=== PATIENT | male | born 1950 | race Caucasian/White ===

== ENCOUNTER 2020-03-19 15:29 | Inpatient (IN) ==
[2020-03-19] MEDS ORDERED: Aspirin 81 MG TAB.CHEW PO ONE (15:36)
[2020-03-19] MEDS ORDERED: *HR* Labetalol 20 MG/4 ML SYRINGE IVP ONE (15:52)
[2020-03-19 16:08] LABS: Basophils % 0.5 %; Eosinophils % 0.2 %; Hematocrit 28.2 % (37.5-50.1); Hemoglobin 9.4 g/dL (12.9-16.9); Immature Granulocytes % 0.3 % (0-4); Lymphocytes # 0.6 K/mcL (0.6-4.6); Lymphocytes % 8.9 %; Mean Corpuscular HGB Conc 33.3 g/dL (31.6-35.5); Mean Corpuscular Hemoglobin 30.6 pg (28.0-33.3); Mean Corpuscular Volume 91.9 fL (83.0-100.0); Mean Platelet Volume 11.1 fL (9.4-12.4); Monocytes # 0.4 K/mcL (0.0-1.3); Monocytes % 6.5 %; Neutrophils # 5.6 K/mcL (1.6-8.9); Platelet Count 123 K/mcL (140-400); Red Blood Count 3.07 M/mcL (4.19-5.50); Red Cell Distribution Width 14.4 % (11.5-14.5); Segmented Neutrophils % 83.6 %; White Blood Count 6.6 K/mcL (4.3-11.1)
[2020-03-19 16:37] LABS: Troponin I 0.08 ng/mL (< 0.04)
[2020-03-19 16:40] LABS: Albumin 3.9 g/dL (3.5-5.7); Albumin/Globulin Ratio 1.3 (1.1-2.2); Bilirubin,Direct 0.2 mg/dL (0.0-0.2); Bilirubin,Indirect 0.4 mg/dL (0.0-1.0); Bilirubin,Total 0.6 mg/dL (0.3-1.0); Globulin 2.9 g/dL (2.4-3.5); Potassium 4.7 mEq/L (3.5-5.1); Total Protein 6.8 g/dL (6.4-8.9)
[2020-03-19 16:50] LABS: Activated Partial Thrombo Time 28.2 Seconds (26.0-36.0)
[2020-03-19 16:51] LABS: Prothrombin Time 11.1 Seconds (9.4-12.1)
[2020-03-19] MEDS ORDERED: Furosemide 40 MG/4 ML VIAL IVP ONE (17:38)
[2020-03-19] MEDS ORDERED: Nitroglycerin 0.4 MG PATCH.TD24 TD ONE (17:45)
[2020-03-19] MEDS ORDERED: Naloxone 0.4 MG/ML INJ IVP PRN (17:53)
[2020-03-19] MEDS ORDERED: Dextrose Gel 15 GM/37.5 ML TUBE PO PRN ×2 (17:56)
[2020-03-19] MEDS ORDERED: D5% in Water 1,000 ML IVC PRN (17:56)
[2020-03-19] MEDS ORDERED: *HR* Dextrose 50 % in Water (Vial) 50 ML VIAL IVP PRN (17:56)
[2020-03-19] MEDS ORDERED: Perflutren Lipid Microsphere 1.3 ML in 0.9 % Sodium Chloride 8.7 ML IVP ONE (17:57)
[2020-03-19] MEDS ORDERED: *HR* Metoprolol 5 MG/5 ML VIAL IVP PRN (17:58)
[2020-03-19] MEDS ORDERED: *HR* Heparin 5,000 UNIT/ML VIAL IVP ONE (18:23)
[2020-03-19] MEDS ORDERED: *HR* Heparin 5,000 UNIT/ML VIAL IVP PRN (18:23)
[2020-03-19 19:33] LABS: Estimated Average Glucose 163 mg/dl; Hemoglobin A1C 7.3 %
[2020-03-19] MEDS: Levalbuterol Neb 1.25 MG/3 ML IH SCH ×2 (19:54→22:14)
[2020-03-19 20:10] LABS: Prothrombin Time 11.2 Seconds (9.4-12.1)
[2020-03-19 20:11] LABS: Heparin anti-factor XA UFH 0.05 IU/mL (0.30-0.70)
[2020-03-19 20:24] LABS: Hematocrit 27.8 % (37.5-50.1); Hemoglobin 9.1 g/dL (12.9-16.9); Mean Corpuscular HGB Conc 32.7 g/dL (31.6-35.5); Mean Corpuscular Volume 91.7 fL (83.0-100.0); Mean Platelet Volume 10.4 fL (9.4-12.4); Platelet Count 126 K/mcL (140-400); Red Blood Count 3.03 M/mcL (4.19-5.50); Red Cell Distribution Width 14.3 % (11.5-14.5); White Blood Count 7.4 K/mcL (4.3-11.1)
[2020-03-19 20:55] LABS: Bacteria,Urine Few per hpf (None-Few); Bilirubin,Urine Negative (Negative); Blood,Urine Small (Negative); Clarity,Urine Clear (Clear); Color,Urine Light-Yellow (Yellow); Glucose,Urine (UA) >=1000 mg/dL (Normal); Ketones,Urine Trace mg/dL (Negative); Leukocyte Esterase,Urine Negative (Negative); Mucus,Urine Few per lpf (None-Few); Nitrite,Urine Negative (Negative); Protein,Urine >=300 mg/dL (Neg-Trace); Urobilinogen,Urine Normal (Normal)
[2020-03-19 20:58] LABS: Sodium, Urine 31.7 mEq/L
[2020-03-19] MEDS ORDERED: Insulin DETEMIR 100 UNIT/ML X5UNITS SQ SCH (21:00)
[2020-03-19] MEDS: Ondansetron 4 MG/2 ML VIAL IVP PRN (21:49)
[2020-03-19] MEDS: Furosemide 40 MG/4 ML VIAL IVP SCH (21:49)
[2020-03-19] MEDS: Heparin 25,000 UNIT/250 ML D5W 25,000 UNIT/250 ML IV.SOLN IVC SCH (21:49)
[2020-03-19] MEDS: Insulin LISPRO 300 UNITS/3 ML VIAL SQ SCH (21:53)
[2020-03-19] MEDS: CLEAR EYES NATURAL TEARS 15 ML BOTTLE BOTH EYES SCH (21:53)
[2020-03-19] MEDS: Insulin DETEMIR 100 UNIT/ML X5UNITS SQ SCH (21:56)
[2020-03-19] MEDS: methocarbamoL 750 MG TABLET PO SCH (21:59)
[2020-03-19] MEDS: Metoprolol XL (24 HR) Succ 25 MG TAB.ER.24H PO SCH (21:59)
[2020-03-19] MEDS: Gabapentin 300 MG CAPSULE PO SCH (21:59)
[2020-03-19] MEDS: Mirtazapine 15 MG TABLET PO SCH (21:59)
[2020-03-19] MEDS: Budesonide/Formoterol 160/4.5 1 PUFF INH IH SCH (22:14)
[2020-03-19] MEDS: clonazePAM 0.5 MG TABLET PO PRN (22:40)
[2020-03-20 00:35] LABS: Basophils % 0.5 %; Eosinophils % 0.4 %; Hematocrit 25.4 % (37.5-50.1); Hemoglobin 8.4 g/dL (12.9-16.9); Immature Granulocytes % 1.1 % (0-4); Lymphocytes # 0.5 K/mcL (0.6-4.6); Lymphocytes % 5.9 %; Mean Corpuscular HGB Conc 33.1 g/dL (31.6-35.5); Mean Corpuscular Volume 90.7 fL (83.0-100.0); Mean Platelet Volume 11.1 fL (9.4-12.4); Monocytes # 0.8 K/mcL (0.0-1.3); Monocytes % 10.1 %; Neutrophils # 6.8 K/mcL (1.6-8.9); Platelet Count 117 K/mcL (140-400); Red Cell Distribution Width 14.2 % (11.5-14.5); White Blood Count 8.3 K/mcL (4.3-11.1)
[2020-03-20 00:57] LABS: Calcium 8.1 mg/dL (8.6-10.3); Magnesium 2.5 mg/dL (1.6-2.6); Phosphorous 6.8 mg/dL (2.7-4.5); Potassium 4.2 mEq/L (3.5-5.1)
[2020-03-20 01:13] LABS: Thyroid Stimulating Hormone 2.537 mcIU/mL (0.340-5.600); Troponin I 0.07 ng/mL (< 0.04)
[2020-03-20] MEDS: Levalbuterol Neb 1.25 MG/3 ML IH SCH ×4 (04:03→22:51)
[2020-03-20] MEDS: Ondansetron 4 MG/2 ML VIAL IVP PRN ×2 (05:33→20:52)
[2020-03-20] MEDS: Heparin 25,000 UNIT/250 ML D5W 25,000 UNIT/250 ML IV.SOLN IVC SCH (06:51)
[2020-03-20] MEDS: Insulin LISPRO 300 UNITS/3 ML VIAL SQ SCH ×4 (09:37→20:52)
[2020-03-20] MEDS: CLEAR EYES NATURAL TEARS 15 ML BOTTLE BOTH EYES SCH ×3 (09:38→20:54)
[2020-03-20] MEDS: amLODIPine 5 MG TABLET PO SCH (09:38)
[2020-03-20] MEDS: Aspirin Enteric Coated 81 MG Tablet PO SCH (09:38)
[2020-03-20] MEDS: Clotrimazole 1% CRM 15 GM TUBE TP SCH ×2 (09:38→20:53)
[2020-03-20] MEDS: methocarbamoL 750 MG TABLET PO SCH ×3 (09:38→20:51)
[2020-03-20] MEDS: Furosemide 40 MG/4 ML VIAL IVP SCH ×2 (09:38→20:51)
[2020-03-20] MEDS: Metoprolol XL (24 HR) Succ 25 MG TAB.ER.24H PO SCH ×2 (09:38→20:52)
[2020-03-20] MEDS: Insulin DETEMIR 100 UNIT/ML X5UNITS SQ SCH ×2 (09:39→22:10)
[2020-03-20] MEDS: Gabapentin 300 MG CAPSULE PO SCH ×3 (09:39→20:52)
[2020-03-20] MEDS: Budesonide/Formoterol 160/4.5 1 PUFF INH IH SCH ×2 (10:27→22:51)
[2020-03-20] MEDS ORDERED: Lidocaine 4% CREAM (LMX) 5 GM TP PRN (13:30)
[2020-03-20] MEDS: MethylPREDNISolone 40 MG/ML VIAL IVP SCH ×2 (18:08→23:31)
[2020-03-20 19:30] LABS: Glucose,Pleural Fluid 167 mg/dL (No Ref Range); LDH,Pleural Fluid 64 Units/L (No Ref Range); Total Protein,Pleural Fluid < 3.0 g/dL
[2020-03-20 20:30] LABS: RBC,Pleural Fluid < 2000 RBC/mcL
[2020-03-20] MEDS: Mirtazapine 15 MG TABLET PO SCH (20:51)
[2020-03-20] MEDS: clonazePAM 0.5 MG TABLET PO PRN (20:52)
[2020-03-20 21:36] LABS: Basophils,Pleural Fluid 0 %; Eosinophils,Pleural Fluid 0 %
[2020-03-20 21:37] LABS: Appearance of Pleural Fl Clear (Clear)
[2020-03-20] MEDS: *HR* Heparin 5,000 UNIT/ML VIAL IVP PRN (23:33)
[2020-03-21] MEDS: Levalbuterol Neb 1.25 MG/3 ML IH SCH ×4 (03:36→22:35)
[2020-03-21 06:57] LABS: Hematocrit 22.9 % (37.5-50.1); Hemoglobin 7.6 g/dL (12.9-16.9); Immature Granulocytes % 0.3 % (0-4); Lymphocytes # 0.2 K/mcL (0.6-4.6); Lymphocytes % 2.5 %; Mean Corpuscular HGB Conc 33.2 g/dL (31.6-35.5); Mean Corpuscular Hemoglobin 30.9 pg (28.0-33.3); Mean Corpuscular Volume 93.1 fL (83.0-100.0); Mean Platelet Volume 10.8 fL (9.4-12.4); Monocytes # 0.1 K/mcL (0.0-1.3); Monocytes % 0.9 %; Neutrophils # 6.1 K/mcL (1.6-8.9); Platelet Count 113 K/mcL (140-400); Red Blood Count 2.46 M/mcL (4.19-5.50); Red Cell Distribution Width 14.5 % (11.5-14.5); Segmented Neutrophils % 96.3 %; White Blood Count 6.4 K/mcL (4.3-11.1)
[2020-03-21 07:16] LABS: Platelet Estimate Slight Decrease (Normal)
[2020-03-21 07:18] LABS: % Iron Saturation 11 % (20-55); Iron 27 mcg/dL (65-175); Transferrin 176 mg/dL (203-362)
[2020-03-21 07:19] LABS: Calcium 8.1 mg/dL (8.6-10.3); Magnesium 2.6 mg/dL (1.6-2.6); Phosphorous 7.8 mg/dL (2.7-4.5)
[2020-03-21 07:45] LABS: Folate 10.2 ng/mL (3.0-16.0)
[2020-03-21] MEDS: Insulin LISPRO 300 UNITS/3 ML VIAL SQ SCH ×4 (07:48→21:07)
[2020-03-21] MEDS: Insulin DETEMIR 100 UNIT/ML X5UNITS SQ SCH ×2 (07:53→18:20)
[2020-03-21] MEDS: methocarbamoL 750 MG TABLET PO SCH ×3 (07:56→21:05)
[2020-03-21] MEDS: Aspirin Enteric Coated 81 MG Tablet PO SCH (07:56)
[2020-03-21] MEDS: MethylPREDNISolone 40 MG/ML VIAL IVP SCH ×2 (07:56→21:07)
[2020-03-21] MEDS: Furosemide 40 MG/4 ML VIAL IVP SCH ×2 (07:56→21:07)
[2020-03-21] MEDS: Metoprolol XL (24 HR) Succ 25 MG TAB.ER.24H PO SCH ×2 (07:56→21:05)
[2020-03-21] MEDS: amLODIPine 5 MG TABLET PO SCH (07:56)
[2020-03-21] MEDS: Gabapentin 300 MG CAPSULE PO SCH (07:56)
[2020-03-21] MEDS: Clotrimazole 1% CRM 15 GM TUBE TP SCH ×2 (08:00→21:08)
[2020-03-21] MEDS: CLEAR EYES NATURAL TEARS 15 ML BOTTLE BOTH EYES SCH ×3 (08:00→21:08)
[2020-03-21 09:24] LABS: Hematocrit 25.8 % (37.5-50.1); Hemoglobin 8.7 g/dL (12.9-16.9)
[2020-03-21] MEDS: Budesonide/Formoterol 160/4.5 1 PUFF INH IH SCH ×2 (10:33→22:35)
[2020-03-21 12:45] LABS: Hepatitis B Surface Antibody 139.44 mIU/mL
[2020-03-21 12:55] LABS: Hepatitis B Surface Antigen Nonreactive (Nonreactive)
[2020-03-21] MEDS ORDERED: Heparin 1,000 UNITS/500 mL 500 ML ONE (13:30)
[2020-03-21] MEDS ORDERED: Lidocaine/EPI 1:100k 1% 50 ML VIAL ONE (13:30)
[2020-03-21] MEDS ORDERED: *HR* FentaNYL (PF) 100 MCG/2 ML VIAL IVP ONE (13:38)
[2020-03-21] MEDS ORDERED: CeFAZolin 2,000 MG/50 ML BAG IVPB ONE (13:38)
[2020-03-21] MEDS ORDERED: *HR* Midazolam HCl 2 MG/2 ML VIAL IVP ONE (13:38)
[2020-03-21] MEDS ORDERED: 0.9 % Sodium Chloride 500 ML ONE (14:28)
[2020-03-21] MEDS ORDERED: *HR* Heparin 5,000 UNIT/ML VIAL ONE (15:06)
[2020-03-21] MEDS: hydrALAZINE 25 MG TABLET PO SCH ×2 (15:52→23:43)
[2020-03-21] MEDS: Heparin 25,000 UNIT/250 ML D5W 25,000 UNIT/250 ML IV.SOLN IVC SCH (15:54)
[2020-03-21 17:05] LABS: Hematocrit 24.7 % (37.5-50.1); Hemoglobin 8.1 g/dL (12.9-16.9)
[2020-03-21] MEDS ORDERED: Metoprolol XL (24 HR) Succ 25 MG TAB.ER.24H PO SCH (21:00)
[2020-03-21] MEDS: Mirtazapine 15 MG TABLET PO SCH (21:05)
[2020-03-21 22:32] LABS: Hematocrit 24.2 % (37.5-50.1); Hemoglobin 7.8 g/dL (12.9-16.9)
[2020-03-21] MEDS: *HR* Heparin 5,000 UNIT/ML VIAL IVP PRN (23:12)
[2020-03-22] MEDS: Levalbuterol Neb 1.25 MG/3 ML IH SCH ×4 (03:36→21:54)
[2020-03-22 05:21] LABS: Basophils % 0.1 %; Hemoglobin 8.1 g/dL (12.9-16.9); Immature Granulocytes % 0.5 % (0-4); Lymphocytes # 0.2 K/mcL (0.6-4.6); Lymphocytes % 1.8 %; Mean Corpuscular HGB Conc 32.4 g/dL (31.6-35.5); Mean Corpuscular Hemoglobin 30.5 pg (28.0-33.3); Mean Platelet Volume 11.2 fL (9.4-12.4); Monocytes # 0.3 K/mcL (0.0-1.3); Platelet Count 125 K/mcL (140-400); Red Blood Count 2.66 M/mcL (4.19-5.50); Red Cell Distribution Width 14.6 % (11.5-14.5); Segmented Neutrophils % 94.6 %; White Blood Count 8.4 K/mcL (4.3-11.1)
[2020-03-22 05:44] LABS: Magnesium 2.6 mg/dL (1.6-2.6); Phosphorous 8.7 mg/dL (2.7-4.5); Potassium 4.9 mEq/L (3.5-5.1)
[2020-03-22 06:27] LABS: Platelet Estimate Slight Decrease (Normal); Poikilocytosis 1+ (Not Present)
[2020-03-22] MEDS: methocarbamoL 750 MG TABLET PO SCH ×3 (07:46→20:41)
[2020-03-22] MEDS: CLEAR EYES NATURAL TEARS 15 ML BOTTLE BOTH EYES SCH ×3 (07:46→20:41)
[2020-03-22] MEDS: Metoprolol XL (24 HR) Succ 25 MG TAB.ER.24H PO SCH ×2 (07:46→20:41)
[2020-03-22] MEDS: Aspirin Enteric Coated 81 MG Tablet PO SCH (07:46)
[2020-03-22] MEDS: hydrALAZINE 25 MG TABLET PO SCH ×2 (07:47→17:31)
[2020-03-22] MEDS: Furosemide 40 MG/4 ML VIAL IVP SCH ×2 (07:48→22:57)
[2020-03-22] MEDS: Clotrimazole 1% CRM 15 GM TUBE TP SCH ×2 (07:48→20:42)
[2020-03-22] MEDS: MethylPREDNISolone 40 MG/ML VIAL IVP SCH (07:48)
[2020-03-22] MEDS: Insulin LISPRO 300 UNITS/3 ML VIAL SQ SCH ×4 (07:49→20:42)
[2020-03-22] MEDS ORDERED: *HR* Heparin 10,000 UNIT/10 ML VIAL IV PRN ×2 (08:10)
[2020-03-22] MEDS ORDERED: 0.9 % Sodium Chloride 250 ML IVC PRN (08:10)
[2020-03-22] MEDS ORDERED: 0.9 % Sodium Chloride 1,000 ML PRIME SCH (08:15)
[2020-03-22] MEDS: Budesonide/Formoterol 160/4.5 1 PUFF INH IH SCH ×2 (09:28→21:54)
[2020-03-22] MEDS ORDERED: polyethylene glycoL 3350 17 GM POWD.PACK PO PRN (10:27)
[2020-03-22 13:53] LABS: Hematocrit 23.3 % (37.5-50.1); Hemoglobin 7.7 g/dL (12.9-16.9)
[2020-03-22] MEDS: Isosorbide MONOnitrate (24 HR) 30 MG TAB.ER.24H PO SCH (14:59)
[2020-03-22] MEDS: Heparin 25,000 UNIT/250 ML D5W 25,000 UNIT/250 ML IV.SOLN IVC SCH (16:30)
[2020-03-22] MEDS ORDERED: 0.9 % Sodium Chloride 250 ML ONE (18:47)
[2020-03-22] MEDS: Insulin DETEMIR 100 UNIT/ML X5UNITS SQ SCH (20:40)
[2020-03-22] MEDS: Mirtazapine 15 MG TABLET PO SCH (20:41)
[2020-03-22] MEDS: Gabapentin 300 MG CAPSULE PO SCH (20:41)
[2020-03-22 23:41] LABS: Hematocrit 27.6 % (37.5-50.1)
[2020-03-23] MEDS: Levalbuterol Neb 1.25 MG/3 ML IH SCH ×4 (03:50→21:43)
[2020-03-23] MEDS ORDERED: *HR* Metoprolol 5 MG/5 ML VIAL IVP PRN (06:22)
[2020-03-23] MEDS: hydrALAZINE 25 MG TABLET PO SCH ×3 (07:27→17:01)
[2020-03-23] MEDS: Insulin LISPRO 300 UNITS/3 ML VIAL SQ SCH ×4 (07:28→21:04)
[2020-03-23] MEDS ORDERED: 0.9 % Sodium Chloride 250 ML IVC PRN (07:34)
[2020-03-23] MEDS ORDERED: *HR* Heparin 10,000 UNIT/10 ML VIAL IV PRN ×2 (07:34)
[2020-03-23 07:37] LABS: Calcium 8.1 mg/dL (8.6-10.3); Magnesium 2.4 mg/dL (1.6-2.6); Potassium 4.5 mEq/L (3.5-5.1)
[2020-03-23 07:38] LABS: Basophils % 0.1 %; Eosinophils % 0.1 %; Hematocrit 29.8 % (37.5-50.1); Hemoglobin 10.1 g/dL (12.9-16.9); Lymphocytes % 7.1 %; Mean Corpuscular HGB Conc 33.9 g/dL (31.6-35.5); Mean Corpuscular Hemoglobin 30.4 pg (28.0-33.3); Mean Corpuscular Volume 89.8 fL (83.0-100.0); Mean Platelet Volume 11.6 fL (9.4-12.4); Monocytes # 0.7 K/mcL (0.0-1.3); Monocytes % 5.4 %; Platelet Count 142 K/mcL (140-400); Red Blood Count 3.32 M/mcL (4.19-5.50); Red Cell Distribution Width 15.2 % (11.5-14.5); Segmented Neutrophils % 86.3 %
[2020-03-23 07:39] LABS: Neutrophils # 11.7 K/mcL (1.6-8.9); White Blood Count 13.5 K/mcL (4.3-11.1)
[2020-03-23] MEDS: Isosorbide MONOnitrate (24 HR) 30 MG TAB.ER.24H PO SCH (08:13)
[2020-03-23] MEDS: Furosemide 40 MG/4 ML VIAL IVP SCH ×2 (08:13→20:56)
[2020-03-23] MEDS: Metoprolol XL (24 HR) Succ 25 MG TAB.ER.24H PO SCH ×2 (08:13→20:53)
[2020-03-23] MEDS: methocarbamoL 750 MG TABLET PO SCH ×3 (08:13→20:54)
[2020-03-23] MEDS: Aspirin Enteric Coated 81 MG Tablet PO SCH (08:13)
[2020-03-23] MEDS: Clotrimazole 1% CRM 15 GM TUBE TP SCH ×2 (08:14→20:55)
[2020-03-23] MEDS: CLEAR EYES NATURAL TEARS 15 ML BOTTLE BOTH EYES SCH ×3 (08:14→20:56)
[2020-03-23] MEDS ORDERED: MethylPREDNISolone 40 MG/ML VIAL IVP SCH (09:00)
[2020-03-23] MEDS: Budesonide/Formoterol 160/4.5 1 PUFF INH IH SCH ×2 (10:00→21:43)
[2020-03-23] MEDS ORDERED: Isosorbide MONOnitrate (24 HR) 30 MG TAB.ER.24H PO ONE (10:15)
[2020-03-23] MEDS: Methyl Salicylate/Menthol 57 APPL/57 GM TUBE TP PRN (11:48)
[2020-03-23] MEDS: Acetaminophen 325 MG TABLET PO PRN (11:48)
[2020-03-23] MEDS ORDERED: Acetaminophen IV 1,000 MG/100 ML BAG IVPB ONE (15:41)
[2020-03-23] MEDS ORDERED: 0.9 % Sodium Chloride 250 ML IVC ONE (15:44)
[2020-03-23] MEDS: Heparin 25,000 UNIT/250 ML D5W 25,000 UNIT/250 ML IV.SOLN IVC SCH (15:45)
[2020-03-23 15:53] LABS: Bilirubin,Urine Negative (Negative); Blood,Urine Moderate (Negative); Clarity,Urine Turbid (Clear); Color,Urine Light-Yellow (Yellow); Glucose,Urine (UA) 150 mg/dL (Normal); Ketones,Urine Negative (Negative); Leukocyte Esterase,Urine Small (Negative); Nitrite,Urine Negative (Negative); Protein,Urine >=300 mg/dL (Neg-Trace); RBC,Urine 50-100 per hpf (0-3); Specific Gravity,Urine 1.013 (1.010-1.025); Urobilinogen,Urine Normal (Normal)
[2020-03-23] MEDS ORDERED: Vancomycin 1,500 MG/265 ML IV.SOLN IVPB ONE (16:00)
[2020-03-23] MEDS ORDERED: Vancomycin 1 EACH in 0.9 % Sodium Chloride 250 ML IVPB SCH (16:00)
[2020-03-23] MEDS: Piperacillin/Tazobactam 3.375 GM in 0.9 % Sodium Chloride Mini Bag 100 ML IVPB SCH (17:00)
[2020-03-23] MEDS ORDERED: Aspirin Enteric Coated 325 MG Tablet PO ONE (17:44)
[2020-03-23] MEDS: *HR* Amiodarone 200 MG TABLET PO SCH ×2 (18:58→22:14)
[2020-03-23] MEDS: Gabapentin 300 MG CAPSULE PO SCH (20:54)
[2020-03-23] MEDS: Mirtazapine 15 MG TABLET PO SCH (20:54)
[2020-03-24] MEDS: hydrALAZINE 25 MG TABLET PO SCH ×3 (00:19→18:02)
[2020-03-24 00:35] LABS: Immature Granulocytes % 0.5 % (0-4)
[2020-03-24 00:46] LABS: Basophils % 0.1 %; Hematocrit 24.7 % (37.5-50.1); Hemoglobin 8.1 g/dL (12.9-16.9); Lymphocytes # 0.7 K/mcL (0.6-4.6); Mean Corpuscular HGB Conc 32.8 g/dL (31.6-35.5); Mean Corpuscular Hemoglobin 30.2 pg (28.0-33.3); Mean Corpuscular Volume 92.2 fL (83.0-100.0); Mean Platelet Volume 10.7 fL (9.4-12.4); Monocytes % 12.2 %; Neutrophils # 7.5 K/mcL (1.6-8.9); Platelet Count 112 K/mcL (140-400); Red Blood Count 2.68 M/mcL (4.19-5.50); Red Cell Distribution Width 15.6 % (11.5-14.5); Segmented Neutrophils % 80.2 %; White Blood Count 9.4 K/mcL (4.3-11.1)
[2020-03-24 00:51] LABS: Calcium 7.3 mg/dL (8.6-10.3); Magnesium 2.2 mg/dL (1.6-2.6); Phosphorous 5.4 mg/dL (2.7-4.5); Potassium 4.7 mEq/L (3.5-5.1)
[2020-03-24 01:06] LABS: Monocytes # 1.2 K/mcL (0.0-1.3)
[2020-03-24 01:07] LABS: Platelet Estimate Slight Decrease (Normal)
[2020-03-24] MEDS: Levalbuterol Neb 1.25 MG/3 ML IH SCH ×4 (03:44→22:07)
[2020-03-24] MEDS: Piperacillin/Tazobactam 3.375 GM in 0.9 % Sodium Chloride Mini Bag 100 ML IVPB SCH ×2 (03:48→18:03)
[2020-03-24] MEDS ORDERED: *HR* Heparin 10,000 UNIT/10 ML VIAL IV PRN (07:37)
[2020-03-24] MEDS ORDERED: 0.9 % Sodium Chloride 250 ML IVC PRN (07:37)
[2020-03-24] MEDS ORDERED: 0.9 % Sodium Chloride 1,000 ML PRIME SCH (07:45)
[2020-03-24 08:09] LABS: Hematocrit 29.6 % (37.5-50.1); Hemoglobin 9.5 g/dL (12.9-16.9)
[2020-03-24] MEDS: Insulin LISPRO 300 UNITS/3 ML VIAL SQ SCH ×4 (09:14→21:08)
[2020-03-24] MEDS: predniSONE 20 MG TABLET PO SCH (09:19)
[2020-03-24] MEDS: Isosorbide MONOnitrate (24 HR) 60 MG TAB.ER.24H PO SCH (09:19)
[2020-03-24] MEDS: Aspirin Enteric Coated 81 MG Tablet PO SCH (09:19)
[2020-03-24] MEDS: *HR* Amiodarone 200 MG TABLET PO SCH ×3 (09:19→20:58)
[2020-03-24] MEDS: methocarbamoL 750 MG TABLET PO SCH ×3 (09:20→20:58)
[2020-03-24] MEDS: Furosemide 40 MG/4 ML VIAL IVP SCH ×2 (09:20→20:58)
[2020-03-24] MEDS: Metoprolol XL (24 HR) Succ 25 MG TAB.ER.24H PO SCH ×2 (09:20→20:58)
[2020-03-24] MEDS: Clotrimazole 1% CRM 15 GM TUBE TP SCH ×2 (09:20→20:59)
[2020-03-24] MEDS: CLEAR EYES NATURAL TEARS 15 ML BOTTLE BOTH EYES SCH ×3 (09:21→20:57)
[2020-03-24] MEDS: Methyl Salicylate/Menthol 57 APPL/57 GM TUBE TP PRN (09:21)
[2020-03-24] MEDS: Budesonide/Formoterol 160/4.5 1 PUFF INH IH SCH ×2 (09:38→22:07)
[2020-03-24] MEDS: Insulin DETEMIR 100 UNIT/ML X5UNITS SQ SCH ×2 (11:37→21:09)
[2020-03-24 12:45] LABS: Hematocrit 32.2 % (37.5-50.1); Hemoglobin 10.6 g/dL (12.9-16.9)
[2020-03-24] MEDS: Heparin 25,000 UNIT/250 ML D5W 25,000 UNIT/250 ML IV.SOLN IVC SCH (18:04)
[2020-03-24] MEDS: Gabapentin 300 MG CAPSULE PO SCH (20:57)
[2020-03-24] MEDS: Mirtazapine 15 MG TABLET PO SCH (20:58)
[2020-03-25] MEDS: hydrALAZINE 25 MG TABLET PO SCH ×4 (00:46→23:28)
[2020-03-25 02:34] LABS: Basophils % 0.1 %; Eosinophils # 0.1 K/mcL (0.0-0.6); Eosinophils % 0.8 %; Hematocrit 29.3 % (37.5-50.1); Hemoglobin 9.6 g/dL (12.9-16.9); Immature Granulocytes % 0.6 % (0-4); Lymphocytes # 0.9 K/mcL (0.6-4.6); Lymphocytes % 9.6 %; Mean Corpuscular HGB Conc 32.8 g/dL (31.6-35.5); Mean Corpuscular Hemoglobin 30.6 pg (28.0-33.3); Mean Corpuscular Volume 93.3 fL (83.0-100.0); Mean Platelet Volume 10.6 fL (9.4-12.4); Monocytes # 1.1 K/mcL (0.0-1.3); Neutrophils # 7.3 K/mcL (1.6-8.9); Platelet Count 144 K/mcL (140-400); Red Blood Count 3.14 M/mcL (4.19-5.50); Red Cell Distribution Width 15.1 % (11.5-14.5); Segmented Neutrophils % 76.9 %; White Blood Count 9.5 K/mcL (4.3-11.1)
[2020-03-25 02:51] LABS: Calcium 8.1 mg/dL (8.6-10.3); Magnesium 2.3 mg/dL (1.6-2.6); Phosphorous 5.3 mg/dL (2.7-4.5); Potassium 4.1 mEq/L (3.5-5.1)
[2020-03-25] MEDS: Levalbuterol Neb 1.25 MG/3 ML IH SCH ×4 (03:59→21:52)
[2020-03-25] MEDS: Piperacillin/Tazobactam 3.375 GM in 0.9 % Sodium Chloride Mini Bag 100 ML IVPB SCH ×2 (04:55→17:15)
[2020-03-25] MEDS: Furosemide 40 MG/4 ML VIAL IVP SCH ×2 (07:55→21:19)
[2020-03-25] MEDS: Insulin LISPRO 300 UNITS/3 ML VIAL SQ SCH ×4 (07:55→21:22)
[2020-03-25] MEDS: Methyl Salicylate/Menthol 57 APPL/57 GM TUBE TP PRN (07:56)
[2020-03-25] MEDS: Insulin DETEMIR 100 UNIT/ML X5UNITS SQ SCH ×2 (07:56→21:22)
[2020-03-25] MEDS: CLEAR EYES NATURAL TEARS 15 ML BOTTLE BOTH EYES SCH ×3 (07:56→21:22)
[2020-03-25] MEDS: Clotrimazole 1% CRM 15 GM TUBE TP SCH ×2 (07:56→17:24)
[2020-03-25] MEDS: predniSONE 20 MG TABLET PO SCH (07:57)
[2020-03-25] MEDS: Aspirin Enteric Coated 81 MG Tablet PO SCH (07:57)
[2020-03-25] MEDS: methocarbamoL 750 MG TABLET PO SCH ×3 (07:57→21:19)
[2020-03-25] MEDS: *HR* Amiodarone 200 MG TABLET PO SCH ×3 (07:57→21:19)
[2020-03-25] MEDS: Metoprolol XL (24 HR) Succ 25 MG TAB.ER.24H PO SCH ×2 (07:57→21:19)
[2020-03-25] MEDS: Isosorbide MONOnitrate (24 HR) 60 MG TAB.ER.24H PO SCH ×2 (07:57→10:13)
[2020-03-25] MEDS: Budesonide/Formoterol 160/4.5 1 PUFF INH IH SCH ×2 (10:27→21:51)
[2020-03-25] MEDS: Acetaminophen 325 MG TABLET PO PRN (14:30)
[2020-03-25] MEDS ORDERED: Aminoglycoside Consult 1 EACH MC ONE (15:38)
[2020-03-25] MEDS: *HR* Heparin 5,000 UNIT/ML VIAL IVP PRN (17:13)
[2020-03-25] MEDS: Heparin 25,000 UNIT/250 ML D5W 25,000 UNIT/250 ML IV.SOLN IVC SCH (17:36)
[2020-03-25] MEDS: Gabapentin 300 MG CAPSULE PO SCH (21:19)
[2020-03-25] MEDS: Mirtazapine 15 MG TABLET PO SCH (21:19)
[2020-03-26] MEDS: Levalbuterol Neb 1.25 MG/3 ML IH SCH ×4 (03:29→21:13)
[2020-03-26] MEDS: Piperacillin/Tazobactam 3.375 GM in 0.9 % Sodium Chloride Mini Bag 100 ML IVPB SCH ×2 (03:59→18:33)
[2020-03-26 05:28] LABS: Basophils % 0.1 %; Hematocrit 28.6 % (37.5-50.1); Hemoglobin 9.2 g/dL (12.9-16.9); Immature Granulocytes % 0.7 % (0-4); Lymphocytes # 0.3 K/mcL (0.6-4.6); Lymphocytes % 2.2 %; Mean Corpuscular HGB Conc 32.2 g/dL (31.6-35.5); Mean Corpuscular Hemoglobin 30.7 pg (28.0-33.3); Mean Corpuscular Volume 95.3 fL (83.0-100.0); Mean Platelet Volume 10.4 fL (9.4-12.4); Monocytes # 0.8 K/mcL (0.0-1.3); Monocytes % 6.9 %; Neutrophils # 10.8 K/mcL (1.6-8.9); Platelet Count 139 K/mcL (140-400); Red Cell Distribution Width 14.5 % (11.5-14.5); Segmented Neutrophils % 90.1 %
[2020-03-26 05:54] LABS: Calcium 7.7 mg/dL (8.6-10.3); Magnesium 2.5 mg/dL (1.6-2.6); Potassium 4.8 mEq/L (3.5-5.1)
[2020-03-26] MEDS ORDERED: Insulin LISPRO 300 UNITS/3 ML VIAL SQ ONE (06:08)
[2020-03-26] MEDS ORDERED: Insulin DETEMIR 100 UNIT/ML X5UNITS SQ ONE (07:24)
[2020-03-26] MEDS: *HR* Amiodarone 200 MG TABLET PO SCH ×3 (08:11→20:55)
[2020-03-26] MEDS: Isosorbide MONOnitrate (24 HR) 60 MG TAB.ER.24H PO SCH (08:11)
[2020-03-26] MEDS: hydrALAZINE 25 MG TABLET PO SCH ×3 (08:12→23:53)
[2020-03-26] MEDS: predniSONE 20 MG TABLET PO SCH (08:13)
[2020-03-26] MEDS: Aspirin Enteric Coated 81 MG Tablet PO SCH (08:14)
[2020-03-26] MEDS: Metoprolol XL (24 HR) Succ 25 MG TAB.ER.24H PO SCH (08:14)
[2020-03-26] MEDS: methocarbamoL 750 MG TABLET PO SCH ×3 (08:14→20:54)
[2020-03-26] MEDS: CLEAR EYES NATURAL TEARS 15 ML BOTTLE BOTH EYES SCH ×3 (08:15→20:54)
[2020-03-26] MEDS: Furosemide 40 MG/4 ML VIAL IVP SCH ×2 (08:15→20:54)
[2020-03-26] MEDS: Clotrimazole 1% CRM 15 GM TUBE TP SCH ×2 (08:16→18:32)
[2020-03-26] MEDS: Insulin LISPRO 300 UNITS/3 ML VIAL SQ SCH ×5 (08:18→23:53)
[2020-03-26] MEDS ORDERED: Insulin DETEMIR 100 UNIT/ML X5UNITS SQ SCH ×2 (09:00→21:00)
[2020-03-26] MEDS ORDERED: Metoprolol XL (24 HR) Succ 25 MG TAB.ER.24H PO ONE (09:15)
[2020-03-26] MEDS: Budesonide/Formoterol 160/4.5 1 PUFF INH IH SCH ×2 (09:54→21:13)
[2020-03-26] MEDS: Heparin 25,000 UNIT/250 ML D5W 25,000 UNIT/250 ML IV.SOLN IVC SCH (18:35)
[2020-03-26] MEDS: Insulin DETEMIR 100 UNIT/ML X5UNITS SQ SCH (20:54)
[2020-03-26] MEDS: Metoprolol XL (24 HR) Succ 50 MG TAB.ER.24H PO SCH (20:54)
[2020-03-26] MEDS: Mirtazapine 15 MG TABLET PO SCH (20:54)
[2020-03-26] MEDS: Gabapentin 300 MG CAPSULE PO SCH (20:54)
[2020-03-27 02:38] LABS: Basophils % 0.1 %; Hematocrit 26.8 % (37.5-50.1); Hemoglobin 8.8 g/dL (12.9-16.9); Immature Granulocytes % 0.8 % (0-4); Lymphocytes # 0.5 K/mcL (0.6-4.6); Lymphocytes % 3.3 %; Mean Corpuscular HGB Conc 32.8 g/dL (31.6-35.5); Mean Corpuscular Hemoglobin 31.1 pg (28.0-33.3); Mean Corpuscular Volume 94.7 fL (83.0-100.0); Mean Platelet Volume 10.5 fL (9.4-12.4); Monocytes # 1.2 K/mcL (0.0-1.3); Monocytes % 8.6 %; Neutrophils # 12.5 K/mcL (1.6-8.9); Platelet Count 171 K/mcL (140-400); Red Blood Count 2.83 M/mcL (4.19-5.50); Red Cell Distribution Width 14.8 % (11.5-14.5); Segmented Neutrophils % 87.2 %; White Blood Count 14.4 K/mcL (4.3-11.1)
[2020-03-27 02:55] LABS: Magnesium 2.5 mg/dL (1.6-2.6); Potassium 4.9 mEq/L (3.5-5.1)
[2020-03-27] MEDS: Levalbuterol Neb 1.25 MG/3 ML IH SCH ×2 (03:23→10:24)
[2020-03-27] MEDS: Insulin LISPRO 300 UNITS/3 ML VIAL SQ SCH ×4 (04:24→17:35)
[2020-03-27] MEDS: Piperacillin/Tazobactam 3.375 GM in 0.9 % Sodium Chloride Mini Bag 100 ML IVPB SCH ×2 (04:34→15:08)
[2020-03-27] MEDS ORDERED: 0.9 % Sodium Chloride 250 ML IVC PRN (07:28)
[2020-03-27] MEDS ORDERED: *HR* Heparin 10,000 UNIT/10 ML VIAL IV PRN (07:28)
[2020-03-27] MEDS: predniSONE 20 MG TABLET PO SCH (08:08)
[2020-03-27] MEDS: methocarbamoL 750 MG TABLET PO SCH ×3 (08:08→20:30)
[2020-03-27] MEDS: Aspirin Enteric Coated 81 MG Tablet PO SCH (08:08)
[2020-03-27] MEDS: *HR* Amiodarone 200 MG TABLET PO SCH ×2 (08:08→20:30)
[2020-03-27] MEDS: Furosemide 40 MG/4 ML VIAL IVP SCH ×2 (08:09→20:30)
[2020-03-27] MEDS: CLEAR EYES NATURAL TEARS 15 ML BOTTLE BOTH EYES SCH ×3 (08:17→20:29)
[2020-03-27] MEDS: hydrALAZINE 25 MG TABLET PO SCH ×2 (08:18→15:07)
[2020-03-27] MEDS: Budesonide/Formoterol 160/4.5 1 PUFF INH IH SCH ×2 (10:23→19:39)
[2020-03-27] MEDS: Metoprolol XL (24 HR) Succ 50 MG TAB.ER.24H PO SCH ×2 (12:34→20:30)
[2020-03-27] MEDS: Clotrimazole 1% CRM 15 GM TUBE TP SCH ×2 (12:34→20:29)
[2020-03-27] MEDS: Isosorbide MONOnitrate (24 HR) 60 MG TAB.ER.24H PO SCH (12:34)
[2020-03-27] MEDS: Insulin DETEMIR 100 UNIT/ML X5UNITS SQ SCH ×2 (12:37→20:30)
[2020-03-27] MEDS ORDERED: ISOVUE-370 200 ML INFUS..BTL ONE (13:23)
[2020-03-27] MEDS ORDERED: *HR* Heparin 10,000 UNIT/10 ML VIAL ONE (13:23)
[2020-03-27] MEDS ORDERED: 0.9 % Sodium Chloride 2,000 ML ONE (13:23)
[2020-03-27] MEDS ORDERED: Heparin 1,000 UNITS/500 mL 500 ML ONE (13:23)
[2020-03-27] MEDS ORDERED: Nitroglycerin 1,000 MCG/10 ML VIAL IV ONE (13:24)
[2020-03-27] MEDS ORDERED: *HR* Midazolam HCl 2 MG/2 ML VIAL ONE (14:02)
[2020-03-27] MEDS ORDERED: *HR* FentaNYL (PF) 100 MCG/2 ML VIAL ONE (14:02)
[2020-03-27] MEDS ORDERED: Levalbuterol Neb 1.25 MG/3 ML IH PRN (14:48)
[2020-03-27] MEDS: Heparin 25,000 UNIT/250 ML D5W 25,000 UNIT/250 ML IV.SOLN IVC SCH (17:35)
[2020-03-27] MEDS: Acetaminophen 325 MG TABLET PO PRN (18:01)
[2020-03-27] MEDS: Mirtazapine 15 MG TABLET PO SCH (20:30)
[2020-03-27] MEDS: Gabapentin 300 MG CAPSULE PO SCH (20:30)
[2020-03-28] MEDS: hydrALAZINE 25 MG TABLET PO SCH ×3 (00:31→16:54)
[2020-03-28] MEDS: Insulin LISPRO 300 UNITS/3 ML VIAL SQ SCH ×5 (00:32→21:52)
[2020-03-28] MEDS: Acetaminophen 325 MG TABLET PO PRN (00:37)
[2020-03-28 02:48] LABS: Basophils % 0.1 %; Eosinophils % 0.1 %; Hematocrit 26.3 % (37.5-50.1); Hemoglobin 8.5 g/dL (12.9-16.9); Immature Granulocytes % 1.1 % (0-4); Lymphocytes # 0.5 K/mcL (0.6-4.6); Lymphocytes % 3.6 %; Mean Corpuscular HGB Conc 32.3 g/dL (31.6-35.5); Mean Corpuscular Hemoglobin 30.1 pg (28.0-33.3); Mean Corpuscular Volume 93.3 fL (83.0-100.0); Mean Platelet Volume 9.8 fL (9.4-12.4); Monocytes # 1.5 K/mcL (0.0-1.3); Monocytes % 10.2 %; Neutrophils # 12.1 K/mcL (1.6-8.9); Platelet Count 167 K/mcL (140-400); Red Blood Count 2.82 M/mcL (4.19-5.50); Red Cell Distribution Width 14.6 % (11.5-14.5); Segmented Neutrophils % 84.9 %; White Blood Count 14.3 K/mcL (4.3-11.1)
[2020-03-28 03:07] LABS: Calcium 7.6 mg/dL (8.6-10.3); Magnesium 2.2 mg/dL (1.6-2.6)
[2020-03-28] MEDS: Piperacillin/Tazobactam 3.375 GM in 0.9 % Sodium Chloride Mini Bag 100 ML IVPB SCH (04:28)
[2020-03-28] MEDS: Budesonide/Formoterol 160/4.5 1 PUFF INH IH SCH ×2 (07:25→19:45)
[2020-03-28] MEDS: methocarbamoL 750 MG TABLET PO SCH ×3 (08:10→20:38)
[2020-03-28] MEDS: Isosorbide MONOnitrate (24 HR) 60 MG TAB.ER.24H PO SCH (08:10)
[2020-03-28] MEDS: Aspirin Enteric Coated 81 MG Tablet PO SCH (08:10)
[2020-03-28] MEDS: Metoprolol XL (24 HR) Succ 50 MG TAB.ER.24H PO SCH ×2 (08:10→20:13)
[2020-03-28] MEDS: *HR* Amiodarone 200 MG TABLET PO SCH ×2 (08:10→20:13)
[2020-03-28] MEDS: Clotrimazole 1% CRM 15 GM TUBE TP SCH ×2 (08:11→20:37)
[2020-03-28] MEDS: Furosemide 40 MG/4 ML VIAL IVP SCH ×2 (08:11→20:37)
[2020-03-28] MEDS: CLEAR EYES NATURAL TEARS 15 ML BOTTLE BOTH EYES SCH ×3 (08:11→20:36)
[2020-03-28] MEDS: Insulin DETEMIR 100 UNIT/ML X5UNITS SQ SCH ×2 (08:12→21:52)
[2020-03-28 11:57] LABS: Prothrombin Time 11.3 Seconds (9.4-12.1)
[2020-03-28] MEDS ORDERED: Anticoagulation Consult 1 Each MC ONE (14:49)
[2020-03-28] MEDS: Heparin 25,000 UNIT/250 ML D5W 25,000 UNIT/250 ML IV.SOLN IVC SCH ×2 (17:03→18:35)
[2020-03-28] MEDS ORDERED: *HR* Warfarin 2.5 MG TABLET PO ONE (18:00)
[2020-03-28] MEDS ORDERED: Warfarin perPT PO PRN (18:00)
[2020-03-28] MEDS: Mirtazapine 15 MG TABLET PO SCH (20:37)
[2020-03-28] MEDS: Gabapentin 300 MG CAPSULE PO SCH (20:37)
[2020-03-29] MEDS: hydrALAZINE 25 MG TABLET PO SCH ×4 (00:01→23:31)
[2020-03-29 00:57] LABS: Basophils % 0.1 %; Eosinophils # 0.2 K/mcL (0.0-0.6); Eosinophils % 1.1 %; Hematocrit 26.5 % (37.5-50.1); Hemoglobin 8.3 g/dL (12.9-16.9); Immature Granulocytes % 1.8 % (0-4); Lymphocytes # 1.8 K/mcL (0.6-4.6); Lymphocytes % 12.4 %; Mean Corpuscular HGB Conc 31.3 g/dL (31.6-35.5); Mean Corpuscular Hemoglobin 30.4 pg (28.0-33.3); Mean Corpuscular Volume 97.1 fL (83.0-100.0); Mean Platelet Volume 10.1 fL (9.4-12.4); Monocytes # 1.6 K/mcL (0.0-1.3); Monocytes % 11.2 %; Neutrophils # 10.5 K/mcL (1.6-8.9); Platelet Count 159 K/mcL (140-400); Red Blood Count 2.73 M/mcL (4.19-5.50); Red Cell Distribution Width 14.8 % (11.5-14.5); Segmented Neutrophils % 73.4 %; White Blood Count 14.2 K/mcL (4.3-11.1)
[2020-03-29 01:04] LABS: Prothrombin Time 11.1 Seconds (9.4-12.1)
[2020-03-29 01:15] LABS: Potassium 4.4 mEq/L (3.5-5.1)
[2020-03-29] MEDS ORDERED: 0.9 % Sodium Chloride 250 ML IVC PRN (07:22)
[2020-03-29] MEDS: Insulin LISPRO 300 UNITS/3 ML VIAL SQ SCH ×4 (07:22→21:17)
[2020-03-29] MEDS ORDERED: *HR* Heparin 10,000 UNIT/10 ML VIAL IV PRN (07:22)
[2020-03-29] MEDS: Budesonide/Formoterol 160/4.5 1 PUFF INH IH SCH ×2 (07:29→19:55)
[2020-03-29] MEDS ORDERED: 0.9 % Sodium Chloride 1,000 ML PRIME SCH (07:30)
[2020-03-29] MEDS: Insulin DETEMIR 100 UNIT/ML X5UNITS SQ SCH ×2 (08:07→19:43)
[2020-03-29] MEDS: Clotrimazole 1% CRM 15 GM TUBE TP SCH ×2 (08:07→19:44)
[2020-03-29] MEDS: CLEAR EYES NATURAL TEARS 15 ML BOTTLE BOTH EYES SCH ×3 (08:07→19:43)
[2020-03-29] MEDS: Acetaminophen 325 MG TABLET PO PRN ×3 (10:54→23:31)
[2020-03-29] MEDS: *HR* OxyCODONE/APAP 7.5/325 TABLET PO PRN ×2 (11:34→19:42)
[2020-03-29] MEDS: methocarbamoL 750 MG TABLET PO SCH ×3 (12:59→19:42)
[2020-03-29] MEDS: *HR* Amiodarone 200 MG TABLET PO SCH ×2 (13:06→19:42)
[2020-03-29] MEDS: Aspirin Enteric Coated 81 MG Tablet PO SCH (13:06)
[2020-03-29] MEDS: Isosorbide MONOnitrate (24 HR) 60 MG TAB.ER.24H PO SCH (13:06)
[2020-03-29] MEDS: Furosemide 40 MG/4 ML VIAL IVP SCH ×2 (13:06→19:43)
[2020-03-29] MEDS: Heparin 25,000 UNIT/250 ML D5W 25,000 UNIT/250 ML IV.SOLN IVC SCH (16:43)
[2020-03-29] MEDS ORDERED: *HR* Warfarin 2.5 MG TABLET PO ONE (18:00)
[2020-03-29] MEDS: Gabapentin 300 MG CAPSULE PO SCH (19:42)
[2020-03-29] MEDS: Mirtazapine 15 MG TABLET PO SCH (19:43)
[2020-03-30] MEDS: *HR* LORazepam 2 MG/ML VIAL IVP PRN (02:59)
[2020-03-30] MEDS: *HR* OxyCODONE/APAP 7.5/325 TABLET PO PRN ×2 (06:00→14:50)
[2020-03-30 07:04] LABS: Hematocrit 27.2 % (37.5-50.1); Hemoglobin 8.7 g/dL (12.9-16.9); Mean Corpuscular Hemoglobin 31.2 pg (28.0-33.3); Mean Corpuscular Volume 97.5 fL (83.0-100.0); Mean Platelet Volume 10.4 fL (9.4-12.4); Platelet Count 153 K/mcL (140-400); Red Blood Count 2.79 M/mcL (4.19-5.50); Red Cell Distribution Width 14.5 % (11.5-14.5); Segmented Neutrophils % 72.7 %; White Blood Count 14.1 K/mcL (4.3-11.1)
[2020-03-30 07:05] LABS: Basophils % 0.3 %; Eosinophils # 0.3 K/mcL (0.0-0.6); Eosinophils % 2.3 %; Immature Granulocytes % 2.1 % (0-4); Lymphocytes # 1.5 K/mcL (0.6-4.6); Lymphocytes % 10.5 %; Monocytes # 1.7 K/mcL (0.0-1.3); Monocytes % 12.1 %; Neutrophils # 10.2 K/mcL (1.6-8.9)
[2020-03-30 07:11] LABS: Prothrombin Time 11.9 Seconds (9.4-12.1)
[2020-03-30] MEDS: Budesonide/Formoterol 160/4.5 1 PUFF INH IH SCH ×2 (07:28→20:52)
[2020-03-30 07:35] LABS: Calcium 7.3 mg/dL (8.6-10.3); Potassium 4.5 mEq/L (3.5-5.1)
[2020-03-30] MEDS: Aspirin Enteric Coated 81 MG Tablet PO SCH (08:21)
[2020-03-30] MEDS: *HR* Amiodarone 200 MG TABLET PO SCH ×2 (08:21→21:11)
[2020-03-30] MEDS: Metoprolol XL (24 HR) Succ 50 MG TAB.ER.24H PO SCH (08:21)
[2020-03-30] MEDS: hydrALAZINE 25 MG TABLET PO SCH ×2 (08:21→17:04)
[2020-03-30] MEDS: CLEAR EYES NATURAL TEARS 15 ML BOTTLE BOTH EYES SCH ×3 (08:22→21:13)
[2020-03-30] MEDS: Clotrimazole 1% CRM 15 GM TUBE TP SCH ×2 (08:22→21:13)
[2020-03-30] MEDS: methocarbamoL 750 MG TABLET PO SCH ×3 (08:22→21:11)
[2020-03-30] MEDS: Isosorbide MONOnitrate (24 HR) 60 MG TAB.ER.24H PO SCH (08:22)
[2020-03-30] MEDS: Furosemide 40 MG/4 ML VIAL IVP SCH ×2 (08:23→21:12)
[2020-03-30] MEDS: Insulin LISPRO 300 UNITS/3 ML VIAL SQ SCH ×4 (08:23→21:09)
[2020-03-30] MEDS: Insulin DETEMIR 100 UNIT/ML X5UNITS SQ SCH ×2 (08:24→21:12)
[2020-03-30] MEDS: Heparin 25,000 UNIT/250 ML D5W 25,000 UNIT/250 ML IV.SOLN IVC SCH (17:38)
[2020-03-30] MEDS ORDERED: *HR* Warfarin 5 MG TABLET PO ONE (18:00)
[2020-03-30] MEDS: Gabapentin 300 MG CAPSULE PO SCH (21:11)
[2020-03-30] MEDS: Mirtazapine 15 MG TABLET PO SCH (21:11)
[2020-03-31] MEDS: hydrALAZINE 25 MG TABLET PO SCH ×3 (01:11→16:07)
[2020-03-31 03:41] LABS: Basophils % 0.2 %; Eosinophils # 0.4 K/mcL (0.0-0.6); Hematocrit 25.6 % (37.5-50.1); Hemoglobin 8.3 g/dL (12.9-16.9); Immature Granulocytes % 2.1 % (0-4); Lymphocytes # 1.6 K/mcL (0.6-4.6); Lymphocytes % 9.3 %; Mean Corpuscular HGB Conc 32.4 g/dL (31.6-35.5); Mean Corpuscular Hemoglobin 31.7 pg (28.0-33.3); Mean Corpuscular Volume 97.7 fL (83.0-100.0); Mean Platelet Volume 9.9 fL (9.4-12.4); Monocytes % 11.6 %; Platelet Count 155 K/mcL (140-400); Red Blood Count 2.62 M/mcL (4.19-5.50); Red Cell Distribution Width 14.6 % (11.5-14.5); Segmented Neutrophils % 74.8 %; White Blood Count 17.4 K/mcL (4.3-11.1)
[2020-03-31 03:52] LABS: INR 1.1; Prothrombin Time 12.4 Seconds (9.4-12.1)
[2020-03-31 03:56] LABS: Calcium 7.8 mg/dL (8.6-10.3); Potassium 4.8 mEq/L (3.5-5.1)
[2020-03-31] MEDS ORDERED: 0.9 % Sodium Chloride 250 ML IVC PRN (07:21)
[2020-03-31] MEDS ORDERED: *HR* Heparin 10,000 UNIT/10 ML VIAL IV PRN (07:43)
[2020-03-31] MEDS: Insulin LISPRO 300 UNITS/3 ML VIAL SQ SCH ×4 (07:53→20:47)
[2020-03-31] MEDS: Furosemide 40 MG/4 ML VIAL IVP SCH (08:08)
[2020-03-31] MEDS: methocarbamoL 750 MG TABLET PO SCH ×3 (08:30→20:45)
[2020-03-31] MEDS: Insulin DETEMIR 100 UNIT/ML X5UNITS SQ SCH ×2 (08:34→20:47)
[2020-03-31] MEDS: *HR* Amiodarone 200 MG TABLET PO SCH ×2 (10:00→20:45)
[2020-03-31] MEDS: Budesonide/Formoterol 160/4.5 1 PUFF INH IH SCH ×2 (10:09→20:20)
[2020-03-31] MEDS: Aspirin Enteric Coated 81 MG Tablet PO SCH (12:57)
[2020-03-31] MEDS: CLEAR EYES NATURAL TEARS 15 ML BOTTLE BOTH EYES SCH ×3 (12:58→20:46)
[2020-03-31] MEDS: Isosorbide MONOnitrate (24 HR) 60 MG TAB.ER.24H PO SCH (12:59)
[2020-03-31] MEDS: Metoprolol XL (24 HR) Succ 50 MG TAB.ER.24H PO SCH (13:00)
[2020-03-31] MEDS: Clotrimazole 1% CRM 15 GM TUBE TP SCH ×2 (13:00→20:46)
[2020-03-31] MEDS: Magic Mouthwash 10 ML UD Cup PO SCH (16:07)
[2020-03-31] MEDS ORDERED: *HR* Warfarin 5 MG TABLET PO ONE (18:00)
[2020-03-31] MEDS: Heparin 25,000 UNIT/250 ML D5W 25,000 UNIT/250 ML IV.SOLN IVC SCH (18:08)
[2020-03-31] MEDS: Gabapentin 300 MG CAPSULE PO SCH (20:45)
[2020-03-31] MEDS: Mirtazapine 15 MG TABLET PO SCH (20:45)
[2020-03-31] MEDS: *HR* LORazepam 2 MG/ML VIAL IVP PRN (22:02)
[2020-04-01] MEDS: hydrALAZINE 25 MG TABLET PO SCH ×4 (00:01→22:43)
[2020-04-01 06:40] LABS: INR 1.5; Prothrombin Time 16.7 Seconds (9.4-12.1)
[2020-04-01 06:42] LABS: Calcium 7.5 mg/dL (8.6-10.3); Potassium 4.4 mEq/L (3.5-5.1)
[2020-04-01] MEDS: Isosorbide MONOnitrate (24 HR) 60 MG TAB.ER.24H PO SCH (07:46)
[2020-04-01] MEDS: Metoprolol XL (24 HR) Succ 50 MG TAB.ER.24H PO SCH (07:47)
[2020-04-01] MEDS: *HR* Amiodarone 200 MG TABLET PO SCH ×2 (07:47→21:05)
[2020-04-01] MEDS: methocarbamoL 750 MG TABLET PO SCH ×3 (07:48→21:05)
[2020-04-01] MEDS: Aspirin Enteric Coated 81 MG Tablet PO SCH (07:48)
[2020-04-01] MEDS: Insulin LISPRO 300 UNITS/3 ML VIAL SQ SCH ×4 (07:51→21:02)
[2020-04-01] MEDS: Insulin DETEMIR 100 UNIT/ML X5UNITS SQ SCH ×2 (07:51→21:03)
[2020-04-01] MEDS: Magic Mouthwash 10 ML UD Cup PO SCH ×3 (07:51→15:10)
[2020-04-01] MEDS: Clotrimazole 1% CRM 15 GM TUBE TP SCH ×2 (07:54→21:09)
[2020-04-01] MEDS: CLEAR EYES NATURAL TEARS 15 ML BOTTLE BOTH EYES SCH ×3 (07:54→21:08)
[2020-04-01 08:50] LABS: Basophils % 0.1 %; Eosinophils # 0.1 K/mcL (0.0-0.6); Hematocrit 20.6 % (37.5-50.1); Hemoglobin 6.8 g/dL (12.9-16.9); Immature Granulocytes % 0.9 % (0-4); Lymphocytes % 6.8 %; Mean Corpuscular Hemoglobin 30.9 pg (28.0-33.3); Mean Corpuscular Volume 93.6 fL (83.0-100.0); Mean Platelet Volume 9.6 fL (9.4-12.4); Monocytes # 1.4 K/mcL (0.0-1.3); Monocytes % 9.3 %; Platelet Count 161 K/mcL (140-400); Red Cell Distribution Width 14.6 % (11.5-14.5); Segmented Neutrophils % 81.9 %; White Blood Count 14.6 K/mcL (4.3-11.1)
[2020-04-01] MEDS: Budesonide/Formoterol 160/4.5 1 PUFF INH IH SCH ×2 (10:24→21:38)
[2020-04-01 16:38] LABS: Hematocrit 17.7 % (37.5-50.1)
[2020-04-01] MEDS ORDERED: 0.9 % Sodium Chloride 250 ML IVC SCH (16:45)
[2020-04-01] MEDS ORDERED: Cyanocobalamin (B-12) 1,000 MCG/ML VIAL IM ONE (16:51)
[2020-04-01] MEDS ORDERED: SODIUM CHLORIDE/NAHCO3/KCL/PEG 4,000 ML SOLN.RECON PO ONE (16:55)
[2020-04-01] MEDS: Pantoprazole 40 MG in 0.9 % Sodium Chloride Mini Bag 100 ML IVC SCH ×2 (17:23→22:37)
[2020-04-01] MEDS ORDERED: *HR* Warfarin 3 MG TABLET PO ONE (18:00)
[2020-04-01] MEDS: Mirtazapine 15 MG TABLET PO SCH (21:05)
[2020-04-01] MEDS: Gabapentin 300 MG CAPSULE PO SCH (21:05)
[2020-04-01] MEDS ORDERED: Furosemide 20 MG/2 ML VIAL IVP ONE (21:30)
[2020-04-02] MEDS: *HR* OxyCODONE/APAP 7.5/325 TABLET PO PRN (00:16)
[2020-04-02] MEDS ORDERED: *HR* Labetalol 20 MG/4 ML SYRINGE IVP ONE (00:45)
[2020-04-02 02:34] LABS: Basophils % 0.2 %; Eosinophils # 0.1 K/mcL (0.0-0.6); Eosinophils % 0.5 %; Hematocrit 22.6 % (37.5-50.1); Hemoglobin 7.5 g/dL (12.9-16.9); Immature Granulocytes % 1.3 % (0-4); Lymphocytes # 0.7 K/mcL (0.6-4.6); Lymphocytes % 3.9 %; Mean Corpuscular HGB Conc 33.2 g/dL (31.6-35.5); Mean Corpuscular Hemoglobin 31.5 pg (28.0-33.3); Mean Platelet Volume 9.4 fL (9.4-12.4); Monocytes # 1.8 K/mcL (0.0-1.3); Monocytes % 9.2 %; Neutrophils # 16.2 K/mcL (1.6-8.9); Platelet Count 155 K/mcL (140-400); Red Blood Count 2.38 M/mcL (4.19-5.50); Red Cell Distribution Width 15.1 % (11.5-14.5); Segmented Neutrophils % 84.9 %; White Blood Count 19.1 K/mcL (4.3-11.1)
[2020-04-02 02:44] LABS: INR 1.3; Prothrombin Time 14.5 Seconds (9.4-12.1)
[2020-04-02 02:55] LABS: Calcium 7.6 mg/dL (8.6-10.3); Potassium 4.7 mEq/L (3.5-5.1)
[2020-04-02] MEDS: Pantoprazole 40 MG in 0.9 % Sodium Chloride Mini Bag 100 ML IVC SCH ×2 (03:03→08:33)
[2020-04-02] MEDS ORDERED: Acetaminophen 325 MG TABLET PO ONE (06:27)
[2020-04-02] MEDS ORDERED: Furosemide 20 MG/2 ML VIAL IVP ONE (07:27)
[2020-04-02] MEDS ORDERED: 0.9 % Sodium Chloride 250 ML IVC SCH (07:30)
[2020-04-02] MEDS ORDERED: Ampicillin/Sulbactam 1,500 MG in 0.9 % Sodium Chloride Mini Bag 100 ML IVPB SCH (08:00)
[2020-04-02] MEDS: Insulin LISPRO 300 UNITS/3 ML VIAL SQ SCH ×2 (08:20→12:36)
[2020-04-02] MEDS: CLEAR EYES NATURAL TEARS 15 ML BOTTLE BOTH EYES SCH (08:22)
[2020-04-02] MEDS: Isosorbide MONOnitrate (24 HR) 60 MG TAB.ER.24H PO SCH (08:47)
[2020-04-02] MEDS: methocarbamoL 750 MG TABLET PO SCH (08:47)
[2020-04-02] MEDS: Metoprolol XL (24 HR) Succ 50 MG TAB.ER.24H PO SCH (08:51)
[2020-04-02] MEDS: Magic Mouthwash 10 ML UD Cup PO SCH ×2 (08:51→11:58)
[2020-04-02] MEDS: hydrALAZINE 25 MG TABLET PO SCH (08:51)
[2020-04-02] MEDS: *HR* Amiodarone 200 MG TABLET PO SCH (08:51)
[2020-04-02] MEDS: Insulin DETEMIR 100 UNIT/ML X5UNITS SQ SCH (08:52)
[2020-04-02] MEDS: Clotrimazole 1% CRM 15 GM TUBE TP SCH (08:54)
[2020-04-02] MEDS ORDERED: Cyanocobalamin (B-12) 1,000 MCG TABLET PO SCH (09:00)
[2020-04-02] MEDS: Budesonide/Formoterol 160/4.5 1 PUFF INH IH SCH (10:46)
[2020-04-02] MEDS ORDERED: *HR* LORazepam 2 MG/ML VIAL IVP ONE (11:27)
[2020-04-02 11:28] LABS: SARS-CoV-2 by NAA NOT DETECTED
[2020-04-02 11:31] LABS: Hematocrit 22.4 % (37.5-50.1); Hemoglobin 7.8 g/dL (12.9-16.9)
[2020-04-02] MEDS ORDERED: Acetaminophen 650 MG RECTAL SUPP RC STA (11:41)
[2020-04-02] MEDS ORDERED: Lidocaine -MPF 4% 5 ML AMPUL ONE (11:48)
[2020-04-02] MEDS ORDERED: Dexamethasone 4 MG/ML VIAL ONE (11:48)
[2020-04-02] MEDS ORDERED: Ondansetron 4 MG/2 ML VIAL ONE (11:48)
[2020-04-02] MEDS ORDERED: *HR* Etomidate 40 MG/20 ML VIAL IVP ONE (11:49)
[2020-04-02] MEDS ORDERED: 0.9 % Sodium Chloride 250 ML IVC PRN (11:49)
[2020-04-02] MEDS ORDERED: *HR* Propofol 200 MG/20 ML VIAL IVP ONE (11:49)
[2020-04-02] MEDS ORDERED: *HR* FentaNYL (PF) 100 MCG/2 ML VIAL ONE (11:49)
[2020-04-02 11:53] LABS: Albumin 2.6 g/dL (3.5-5.7); Albumin/Globulin Ratio 1.1 (1.1-2.2); Bilirubin,Direct 0.3 mg/dL (0.0-0.2); Bilirubin,Indirect 0.4 mg/dL (0.0-1.0); Bilirubin,Total 0.7 mg/dL (0.3-1.0); Globulin 2.3 g/dL (2.4-3.5); Total Protein 4.9 g/dL (6.4-8.9)
[2020-04-02] MEDS ORDERED: Simethicone 40 MG/0.6 ML MLS IR ONE (13:33)
[2020-04-02 14:11] LABS: Basophils % 0.1 %; Hematocrit 25.2 % (37.5-50.1); Hemoglobin 8.5 g/dL (12.9-16.9); Immature Granulocytes % 0.7 % (0-4); Lymphocytes # 0.4 K/mcL (0.6-4.6); Lymphocytes % 1.8 %; Mean Corpuscular HGB Conc 33.7 g/dL (31.6-35.5); Mean Corpuscular Hemoglobin 30.6 pg (28.0-33.3); Mean Corpuscular Volume 90.6 fL (83.0-100.0); Mean Platelet Volume 8.9 fL (9.4-12.4); Monocytes # 1.1 K/mcL (0.0-1.3); Neutrophils # 20.6 K/mcL (1.6-8.9); Platelet Count 131 K/mcL (140-400); Red Blood Count 2.78 M/mcL (4.19-5.50); Segmented Neutrophils % 92.4 %; White Blood Count 22.3 K/mcL (4.3-11.1)
[2020-04-02 15:01] LABS: Albumin 2.7 g/dL (3.5-5.7); Albumin/Globulin Ratio 1.2 (1.1-2.2); Bilirubin,Total 0.7 mg/dL (0.3-1.0); Calcium 7.9 mg/dL (8.6-10.3); Globulin 2.3 g/dL (2.4-3.5); Potassium 5.1 mEq/L (3.5-5.1)
[2020-04-02 16:37] VITALS: BP 107/44
== END 2020-04-02 14:50 | disposition short-term general hospital (02) | DRG 673 ==
LOC: 2ANU 15:29 → EMEROOARM 15:29 → SUATTDRO 19:11 → 2ANU 19:35
PROVIDERS: ADMIT Internal Medicine; ATTEND Family Medicine

== ENCOUNTER 2020-05-05 10:53 | Observation (INO) ==
[2020-05-05] MEDS ORDERED: Aspirin 81 MG TAB.CHEW PO ONE (10:57)
[2020-05-05] MEDS ORDERED: Nitroglycerin 0.4 MG TAB.SUBL SL ONE (11:11)
[2020-05-05 11:28] LABS: Basophils # 0.1 K/mcL (0.0-0.2); Basophils % 0.6 %; Eosinophils % 0.3 %; Hematocrit 34.1 % (37.5-50.1); Immature Granulocytes % 1.5 % (0-4); Lymphocytes # 0.9 K/mcL (0.6-4.6); Lymphocytes % 7.7 %; Mean Corpuscular HGB Conc 32.3 g/dL (31.6-35.5); Mean Corpuscular Hemoglobin 31.1 pg (28.0-33.3); Mean Corpuscular Volume 96.3 fL (83.0-100.0); Mean Platelet Volume 8.7 fL (9.4-12.4); Monocytes # 0.7 K/mcL (0.0-1.3); Monocytes % 6.4 %; Neutrophils # 9.5 K/mcL (1.6-8.9); Platelet Count 241 K/mcL (140-400); Red Blood Count 3.54 M/mcL (4.19-5.50); Red Cell Distribution Width 15.7 % (11.5-14.5); Segmented Neutrophils % 83.5 %; White Blood Count 11.4 K/mcL (4.3-11.1)
[2020-05-05 11:30] LABS: INR 1.3; Prothrombin Time 14.5 Seconds (9.4-12.1)
[2020-05-05] MEDS ORDERED: Isovue-370 500 ML BOTTLE IVP ONE (11:37)
[2020-05-05 11:44] LABS: Albumin 3.1 g/dL (3.5-5.7); Bilirubin,Direct 0.1 mg/dL (0.0-0.2); Bilirubin,Indirect 0.4 mg/dL (0.0-1.0); Bilirubin,Total 0.5 mg/dL (0.3-1.0); Globulin 3.2 g/dL (2.4-3.5); Total Protein 6.3 g/dL (6.4-8.9)
[2020-05-05 11:45] LABS: Calcium 8.6 mg/dL (8.6-10.3); Magnesium 2.2 mg/dL (1.6-2.6); Phosphorous 4.1 mg/dL (2.7-4.5); Potassium 4.9 mEq/L (3.5-5.1)
[2020-05-05 11:46] LABS: Troponin I 0.03 ng/mL (< 0.04)
[2020-05-05 13:16] LABS: Bilirubin,Urine Negative (Negative); Blood,Urine Moderate (Negative); Clarity,Urine Ex.Turbid (Clear); Color,Urine Orange (Yellow); Glucose,Urine (UA) 70 mg/dL (Normal); Ketones,Urine Negative (Negative); Leukocyte Esterase,Urine Large (Negative); Nitrite,Urine Negative (Negative); Protein,Urine >=300 mg/dL (Neg-Trace); RBC,Urine 15-30 per hpf (0-3); Specific Gravity,Urine 1.012 (1.010-1.025); Urobilinogen,Urine Normal (Normal); WBC,Urine TNTC per hpf (0-3)
[2020-05-05] MEDS ORDERED: cefTRIAXone 1,000 MG in Water for inj. (sterile) 10 ML IVP ONE (13:52)
[2020-05-05] MEDS ORDERED: Naloxone 0.4 MG/ML INJ IVP PRN (14:21)
[2020-05-05] MEDS ORDERED: Acetaminophen 325 MG TABLET PO PRN (14:21)
[2020-05-05] MEDS ORDERED: *HR* Dextrose 50 % in Water (Vial) 50 ML VIAL IVP PRN (14:24)
[2020-05-05] MEDS ORDERED: Dextrose Gel 15 GM/37.5 ML TUBE PO PRN ×2 (14:24)
[2020-05-05] MEDS ORDERED: D5% in Water 1,000 ML IVC PRN (14:24)
[2020-05-05] MEDS ORDERED: Insulin LISPRO 300 UNITS/3 ML VIAL SQ SCH (17:00)
[2020-05-05] MEDS: hydrALAZINE 25 MG TABLET PO SCH (17:18)
[2020-05-05 18:11] LABS: Hematocrit 29.3 % (37.5-50.1); Hemoglobin 9.4 g/dL (12.9-16.9); Immature Platelets 3.4 % (1.1-6.1); Mean Corpuscular HGB Conc 32.1 g/dL (31.6-35.5); Mean Corpuscular Hemoglobin 30.4 pg (28.0-33.3); Mean Corpuscular Volume 94.8 fL (83.0-100.0); Mean Platelet Volume 10.3 fL (9.4-12.4); Red Blood Count 3.09 M/mcL (4.19-5.50); Red Cell Distribution Width 15.7 % (11.5-14.5); White Blood Count 9.4 K/mcL (4.3-11.1)
[2020-05-05] MEDS ORDERED: clonazePAM 0.5 MG TABLET PO PRN (18:17)
[2020-05-05] MEDS: Gabapentin 300 MG CAPSULE PO SCH (20:53)
[2020-05-05] MEDS ORDERED: Mirtazapine 15 MG TABLET PO SCH (21:00)
[2020-05-05] MEDS ORDERED: Insulin DETEMIR 100 UNIT/ML X5UNITS SQ SCH (21:00)
[2020-05-06] MEDS: hydrALAZINE 25 MG TABLET PO SCH ×3 (00:41→18:25)
[2020-05-06 03:08] LABS: Hematocrit 24.9 % (37.5-50.1); Hemoglobin 8.1 g/dL (12.9-16.9); Mean Corpuscular HGB Conc 32.5 g/dL (31.6-35.5); Mean Corpuscular Hemoglobin 30.8 pg (28.0-33.3); Mean Corpuscular Volume 94.7 fL (83.0-100.0); Mean Platelet Volume 8.6 fL (9.4-12.4); Platelet Count 191 K/mcL (140-400); Red Blood Count 2.63 M/mcL (4.19-5.50); White Blood Count 8.5 K/mcL (4.3-11.1)
[2020-05-06 03:33] LABS: Calcium 7.6 mg/dL (8.6-10.3); Potassium 4.6 mEq/L (3.5-5.1)
[2020-05-06] MEDS ORDERED: 0.9 % Sodium Chloride 250 ML IVC PRN (07:01)
[2020-05-06] MEDS ORDERED: 0.9 % Sodium Chloride 1,000 ML PRIME SCH (07:15)
[2020-05-06] MEDS: Gabapentin 300 MG CAPSULE PO SCH ×2 (07:55→16:18)
[2020-05-06] MEDS: Insulin LISPRO 300 UNITS/3 ML VIAL SQ SCH ×3 (07:56→16:18)
[2020-05-06] MEDS ORDERED: Metoprolol XL (24 HR) Succ 50 MG TAB.ER.24H PO SCH (09:00)
[2020-05-06] MEDS ORDERED: Aspirin Enteric Coated 81 MG Tablet PO SCH (09:00)
[2020-05-06] MEDS ORDERED: Isosorbide MONOnitrate (24 HR) 60 MG TAB.ER.24H PO SCH (09:00)
[2020-05-06] MEDS ORDERED: Cyanocobalamin (B-12) 1,000 MCG TABLET PO SCH (09:00)
[2020-05-06 10:46] LABS: Hematocrit 24.9 % (37.5-50.1); Hemoglobin 7.9 g/dL (12.9-16.9)
[2020-05-06 11:31] LABS: Hepatitis B Surface Antibody 83.17 mIU/mL
[2020-05-06 11:41] LABS: Hepatitis B Surface Antigen Nonreactive (Nonreactive)
[2020-05-06 18:12] VITALS: BP 168/66
[2020-05-06] MEDS ORDERED: Insulin DETEMIR 100 UNIT/ML X5UNITS SQ SCH (21:00)
== END 2020-05-06 19:15 | disposition home or self-care (01) ==
LOC: 2ANU 10:53 → EMEROOARM 10:53 → 2ANU 15:22
PROVIDERS: ADMIT Internal Medicine; ATTEND Internal Medicine

== ENCOUNTER 2020-06-12 08:01 | Inpatient (IN) ==
[2020-06-12 08:51] LABS: Basophils % 0.4 %; Eosinophils % 0.4 %; Hematocrit 35.5 % (37.5-50.1); Hemoglobin 10.7 g/dL (12.9-16.9); Immature Granulocytes % 0.6 % (0-4); Lymphocytes # 0.3 K/mcL (0.6-4.6); Lymphocytes % 6.9 %; Mean Corpuscular HGB Conc 30.1 g/dL (31.6-35.5); Mean Corpuscular Hemoglobin 31.3 pg (28.0-33.3); Mean Corpuscular Volume 103.8 fL (83.0-100.0); Mean Platelet Volume 9.4 fL (9.4-12.4); Monocytes # 0.8 K/mcL (0.0-1.3); Monocytes % 16.2 %; Neutrophils # 3.7 K/mcL (1.6-8.9); Platelet Count 144 K/mcL (140-400); Red Blood Count 3.42 M/mcL (4.19-5.50); Red Cell Distribution Width 15.2 % (11.5-14.5); Segmented Neutrophils % 75.5 %; White Blood Count 4.9 K/mcL (4.3-11.1)
[2020-06-12 09:00] LABS: INR 1.1; Prothrombin Time 12.6 Seconds (9.4-12.1)
[2020-06-12 09:09] LABS: Troponin I 0.05 ng/mL (< 0.04)
[2020-06-12] MEDS ORDERED: Piperacillin/Tazobactam 3.375 GM in 0.9 % Sodium Chloride Mini Bag 100 ML IVPB ONE (09:18)
[2020-06-12] MEDS ORDERED: Vancomycin 1,250 MG/262.5 ML IV.SOLN IVPB ONE (09:18)
[2020-06-12] MEDS ORDERED: Aspirin 81 MG TAB.CHEW PO ONE (09:18)
[2020-06-12 09:31] LABS: Albumin 2.9 g/dL (3.5-5.7); Albumin/Globulin Ratio 1.1 (1.1-2.2); Bilirubin,Direct 0.1 mg/dL (0.0-0.2); Bilirubin,Indirect 0.4 mg/dL (0.0-1.0); Bilirubin,Total 0.5 mg/dL (0.3-1.0); Calcium 8.2 mg/dL (8.6-10.3); Globulin 2.7 g/dL (2.4-3.5); Magnesium 2.2 mg/dL (1.6-2.6); Phosphorous 7.8 mg/dL (2.7-4.5); Total Protein 5.6 g/dL (6.4-8.9)
[2020-06-12 09:44] LABS: Adenovirus Not Detected (Not Detect); Bordetella Pertussis Not Detected (Not Detect); Chlamydophila pneumoniae Not Detected (Not Detect); Coronavirus 229E Not Detected (Not Detect); Coronavirus HKU1 Not Detected (Not Detect); Coronavirus NL63 Not Detected (Not Detect); Coronavirus OC43 Not Detected (Not Detect); Human Metapneumovirus Not Detected (Not Detect); Human Rhinovirus/Enterovirus Not Detected (Not Detect); Influenza A Subtype 2009 H1 Not Detected (Not Detect); Influenza B Not Detected (Not Detect); Mycoplasma pneumoniae Not Detected (Not Detect); Parainfluenza Virus 1 Not Detected (Not Detect); Parainfluenza Virus 2 Not Detected (Not Detect); Parainfluenza Virus 3 Not Detected (Not Detect); Parainfluenza Virus 4 Not Detected (Not Detect); Respiratory Syncytial Virus Not Detected (Not Detect); SARS-CoV-2 DETECTED (Not Detect)
[2020-06-12 10:31] LABS: Bacteria,Urine Few per hpf (None-Few); Bilirubin,Urine Negative (Negative); Blood,Urine Small (Negative); Budding Yeast,Urine Many per hpf (None Seen); Clarity,Urine Ex.Turbid (Clear); Color,Urine Yellow (Yellow); Glucose,Urine (UA) 500 mg/dL (Normal); Ketones,Urine Negative (Negative); Leukocyte Esterase,Urine Large (Negative); Nitrite,Urine Negative (Negative); PH,Urine 6.5 pH Units (5.0-8.0); Protein,Urine 200 mg/dL (Neg-Trace); RBC,Urine 15-30 per hpf (0-3); Specific Gravity,Urine 1.013 (1.010-1.025); Urobilinogen,Urine Normal (Normal); WBC,Urine TNTC per hpf (0-3)
[2020-06-12] MEDS ORDERED: Naloxone 0.4 MG/ML INJ IVP PRN (10:47)
[2020-06-12] MEDS ORDERED: Ondansetron 4 MG/2 ML VIAL IVP PRN (10:47)
[2020-06-12] MEDS ORDERED: Furosemide 40 MG/4 ML VIAL IVP ONE (10:50)
[2020-06-12] MEDS ORDERED: Ipratropium/Albuterol Neb 3 ML IH PRN (13:49)
[2020-06-12] MEDS ORDERED: 0.9 % Sodium Chloride 250 ML IVC PRN (13:56)
[2020-06-12] MEDS ORDERED: *HR* Heparin 10,000 UNIT/10 ML VIAL IV PRN (13:56)
[2020-06-12] MEDS ORDERED: 0.9 % Sodium Chloride 1,000 ML PRIME SCH (14:00)
[2020-06-12] MEDS ORDERED: 0.9 % Sodium Chloride 1,000 ML ONE (15:32)
[2020-06-12] MEDS: Dexamethasone 4 MG/ML VIAL IVP SCH (16:16)
[2020-06-12] MEDS: Piperacillin/Tazobactam 3.375 GM in 0.9 % Sodium Chloride Mini Bag 100 ML IVPB SCH (18:54)
[2020-06-13] MEDS: Metoprolol XL (24 HR) Succ 50 MG TAB.ER.24H PO SCH (02:41)
[2020-06-13 02:42] LABS: Basophils % 0.2 %; Hematocrit 38.4 % (37.5-50.1); Hemoglobin 11.9 g/dL (12.9-16.9); Immature Granulocytes % 0.5 % (0-4); Lymphocytes # 0.3 K/mcL (0.6-4.6); Mean Corpuscular Hemoglobin 32.6 pg (28.0-33.3); Mean Corpuscular Volume 105.2 fL (83.0-100.0); Mean Platelet Volume 10.2 fL (9.4-12.4); Monocytes # 0.5 K/mcL (0.0-1.3); Monocytes % 11.7 %; Neutrophils # 3.3 K/mcL (1.6-8.9); Platelet Count 126 K/mcL (140-400); Red Blood Count 3.65 M/mcL (4.19-5.50); Red Cell Distribution Width 14.6 % (11.5-14.5); Segmented Neutrophils % 79.6 %; White Blood Count 4.1 K/mcL (4.3-11.1)
[2020-06-13 03:08] LABS: Calcium 7.8 mg/dL (8.6-10.3); Magnesium 2.1 mg/dL (1.6-2.6)
[2020-06-13] MEDS ORDERED: Insulin LISPRO 300 UNITS/3 ML VIAL SQ ONE (03:14)
[2020-06-13] MEDS ORDERED: Insulin Human Regular 10 UNIT in 0.9 % Sodium Chloride 10 ML IV ONE (03:14)
[2020-06-13] MEDS ORDERED: D5% in 0.45% NACL 1,000 ML IVC PRN (04:50)
[2020-06-13] MEDS ORDERED: Insulin LISPRO 300 UNITS/3 ML VIAL SQ PRN (04:50)
[2020-06-13] MEDS ORDERED: *HR* Dextrose 50 % in Water (Vial) 50 ML VIAL IVP PRN (04:50)
[2020-06-13] MEDS ORDERED: D5% in 0.45% NACL w KCl 20 MEQ/1,000 ML MLS IVC PRN (04:50)
[2020-06-13] MEDS ORDERED: 0.9 % Sodium Chloride 1,000 ML IVC SCH (05:00)
[2020-06-13] MEDS ORDERED: Insulin Human Regular 100 UNIT in 0.9 % Sodium Chloride 100 ML IVC SCH (05:00)
[2020-06-13] MEDS: Piperacillin/Tazobactam 3.375 GM in 0.9 % Sodium Chloride Mini Bag 100 ML IVPB SCH ×2 (06:18→18:22)
[2020-06-13] MEDS ORDERED: *HR* Enoxaparin 30 MG/0.3 ML SYRINGE SQ SCH (07:00)
[2020-06-13 07:26] LABS: VBG HCO3 20 mEq/L (21-27); VBG PCO2 23 mmHg (41-51); VBG PH 7.56 pH Units (7.32-7.42); VBG PO2 214 mmHg (25-50)
[2020-06-13] MEDS ORDERED: Insulin LISPRO 300 UNITS/3 ML VIAL SQ SCH (07:30)
[2020-06-13] MEDS: Dexamethasone 4 MG/ML VIAL IVP SCH (08:18)
[2020-06-13] MEDS ORDERED: Insulin DETEMIR 100 UNIT/ML X5UNITS SQ SCH (09:00)
[2020-06-13 10:13] LABS: Calcium 7.7 mg/dL (8.6-10.3); Potassium 4.2 mEq/L (3.5-5.1)
[2020-06-13] MEDS ORDERED: Dextrose Gel 15 GM/37.5 ML TUBE PO PRN ×2 (10:21)
[2020-06-13] MEDS ORDERED: D5% in Water 1,000 ML IVC PRN (10:21)
[2020-06-13] MEDS ORDERED: Insulin DETEMIR 100 UNIT/ML X5UNITS SQ ONE (10:21)
[2020-06-13] MEDS: Insulin LISPRO 300 UNITS/3 ML VIAL SQ SCH ×3 (11:09→20:43)
[2020-06-13] MEDS ORDERED: Ergocalciferol (VIT D2) 50,000 UNIT (1.25MG) CAP PO SCH (14:30)
[2020-06-13] MEDS: Ipratropium 1 PUFF INHALER IH SCH ×3 (15:13→23:33)
[2020-06-13] MEDS: hydrALAZINE 25 MG TABLET PO SCH (16:07)
[2020-06-13] MEDS: Artificial Tears SOLN 15 ML BOTTLE BOTH EYES SCH ×2 (16:08→20:42)
[2020-06-13] MEDS: Gabapentin 300 MG CAPSULE PO SCH ×2 (16:08→20:03)
[2020-06-13] MEDS ORDERED: Furosemide 40 MG/4 ML VIAL IVP ONE (16:53)
[2020-06-13] MEDS ORDERED: Furosemide 100 MG in 0.9 % Sodium Chloride 50 ML IVPB ONE (17:15)
[2020-06-13] MEDS: Mirtazapine 15 MG TABLET PO SCH (20:03)
[2020-06-13] MEDS: Apixaban 5 MG TABLET PO SCH (20:03)
[2020-06-13] MEDS: Insulin DETEMIR 100 UNIT/ML X5UNITS SQ SCH (20:09)
[2020-06-13] MEDS: Budesonide/Formoterol 80/4.5 1 PUFF INH IH SCH (20:35)
[2020-06-13] MEDS ORDERED: Apixaban 5 MG TABLET PO SCH (21:00)
[2020-06-14] MEDS: hydrALAZINE 25 MG TABLET PO SCH ×4 (00:46→23:11)
[2020-06-14] MEDS: Ipratropium 1 PUFF INHALER IH SCH ×5 (03:59→21:45)
[2020-06-14 04:41] LABS: Hematocrit 41.5 % (37.5-50.1); Mean Corpuscular HGB Conc 31.3 g/dL (31.6-35.5); Mean Corpuscular Hemoglobin 31.7 pg (28.0-33.3); Mean Corpuscular Volume 101.2 fL (83.0-100.0); Mean Platelet Volume 9.5 fL (9.4-12.4); Platelet Count 147 K/mcL (140-400); Red Cell Distribution Width 14.5 % (11.5-14.5); White Blood Count 4.4 K/mcL (4.3-11.1)
[2020-06-14 04:55] LABS: Potassium 4.6 mEq/L (3.5-5.1)
[2020-06-14 04:56] LABS: Magnesium 2.3 mg/dL (1.6-2.6); Phosphorous 7.2 mg/dL (2.7-4.5)
[2020-06-14] MEDS: Piperacillin/Tazobactam 3.375 GM in 0.9 % Sodium Chloride Mini Bag 100 ML IVPB SCH ×2 (05:14→18:36)
[2020-06-14] MEDS ORDERED: *HR* Heparin 10,000 UNIT/10 ML VIAL IV PRN (07:15)
[2020-06-14] MEDS ORDERED: 0.9 % Sodium Chloride 250 ML IVC PRN (07:15)
[2020-06-14] MEDS ORDERED: 0.9 % Sodium Chloride 1,000 ML PRIME SCH (07:15)
[2020-06-14] MEDS: Aspirin Enteric Coated 81 MG Tablet PO SCH (08:00)
[2020-06-14] MEDS: Cyanocobalamin (B-12) 1,000 MCG TABLET PO SCH (08:00)
[2020-06-14] MEDS: Finasteride 5 MG TABLET PO SCH (08:00)
[2020-06-14] MEDS: Insulin DETEMIR 100 UNIT/ML X5UNITS SQ SCH ×2 (08:00→20:41)
[2020-06-14] MEDS: Gabapentin 300 MG CAPSULE PO SCH ×3 (08:00→20:41)
[2020-06-14] MEDS: Isosorbide MONOnitrate (24 HR) 60 MG TAB.ER.24H PO SCH (08:00)
[2020-06-14] MEDS: Vitamin B Complex/Vit C/Vit E 1 EACH TABLET PO SCH (08:00)
[2020-06-14] MEDS: Artificial Tears SOLN 15 ML BOTTLE BOTH EYES SCH ×3 (08:00→20:41)
[2020-06-14] MEDS: Insulin LISPRO 300 UNITS/3 ML VIAL SQ SCH ×4 (08:00→20:40)
[2020-06-14] MEDS: amLODIPine 5 MG TABLET PO SCH (08:00)
[2020-06-14] MEDS: Metoprolol XL (24 HR) Succ 50 MG TAB.ER.24H PO SCH (08:00)
[2020-06-14] MEDS: Dexamethasone 4 MG/ML VIAL IVP SCH (08:00)
[2020-06-14] MEDS: Furosemide 20 MG TABLET PO SCH (08:00)
[2020-06-14] MEDS: Budesonide/Formoterol 80/4.5 1 PUFF INH IH SCH ×2 (08:16→21:45)
[2020-06-14 08:55] LABS: Estimated Average Glucose 120 mg/dl
[2020-06-14] MEDS: Apixaban 5 MG TABLET PO SCH ×2 (11:08→20:41)
[2020-06-14] MEDS ORDERED: Ipratropium 1 PUFF INHALER IH PRN (12:41)
[2020-06-14] MEDS ORDERED: Vancomycin 1,250 MG/262.5 ML IV.SOLN IVPB ONE (16:00)
[2020-06-14 19:35] LABS: Enterococcus by PCR Not Detected (Not Detect); blaKPC Carbapenem-Resist Gene Not Detected (Not Detect); mecA Methicillin-Resist Gene DETECTED (Not Detect); vanA/B Vancomycin-Resist Genes Not Detected (Not Detect)
[2020-06-14 19:36] LABS: Acinetobacter baumannii by PCR Not Detected (Not Detect); Candida albicans by PCR Not Detected (Not Detect); Candida glabrata by PCR Not Detected (Not Detect); Candida krusei by PCR Not Detected (Not Detect); Candida parapsilosis by PCR Not Detected (Not Detect); Candida tropicalis by PCR Not Detected (Not Detect); Enterobacter cloacae Cmplx PCR Not Detected (Not Detect); Enterobacteriaceae by PCR Not Detected (Not Detect); Escherichia coli by PCR Not Detected (Not Detect); Klebsiella oxytoca by PCR Not Detected (Not Detect); Klebsiella pneumoniae by PCR Not Detected (Not Detect); Proteus by PCR Not Detected (Not Detect); Pseudomonas aeruginosa by PCR Not Detected (Not Detect); Serratia marcescens by PCR Not Detected (Not Detect); Staphylococcus aureus by PCR Not Detected (Not Detect); Staphylococcus by PCR DETECTED (Not Detect); Streptococcus agalactiae(B)PCR Not Detected (Not Detect); Streptococcus by PCR Not Detected (Not Detect); Streptococcus pneumoniae PCR Not Detected (Not Detect); Streptococcus pyogenes (A) PCR Not Detected (Not Detect)
[2020-06-14] MEDS ORDERED: Furosemide 40 MG/4 ML VIAL IVP ONE (20:11)
[2020-06-14] MEDS ORDERED: Furosemide 100 MG in 0.9 % Sodium Chloride 50 ML IVPB ONE (20:15)
[2020-06-14] MEDS: Mirtazapine 15 MG TABLET PO SCH (20:41)
[2020-06-14] MEDS ORDERED: Linezolid 600 MG TABLET PO SCH (21:00)
[2020-06-15] MEDS: Metoprolol XL (24 HR) Succ 50 MG TAB.ER.24H PO SCH ×2 (02:02→09:03)
[2020-06-15] MEDS: Ipratropium 1 PUFF INHALER IH SCH ×4 (03:29→21:26)
[2020-06-15] MEDS: amLODIPine 5 MG TABLET PO SCH (05:16)
[2020-06-15] MEDS: Piperacillin/Tazobactam 3.375 GM in 0.9 % Sodium Chloride Mini Bag 100 ML IVPB SCH ×2 (05:16→17:13)
[2020-06-15] MEDS: Artificial Tears SOLN 15 ML BOTTLE BOTH EYES SCH ×3 (08:45→20:06)
[2020-06-15] MEDS: Insulin LISPRO 300 UNITS/3 ML VIAL SQ SCH ×4 (08:56→20:05)
[2020-06-15] MEDS: Apixaban 5 MG TABLET PO SCH ×2 (08:57→19:27)
[2020-06-15] MEDS: Finasteride 5 MG TABLET PO SCH (08:57)
[2020-06-15] MEDS: Vitamin B Complex/Vit C/Vit E 1 EACH TABLET PO SCH (08:58)
[2020-06-15] MEDS: Furosemide 20 MG TABLET PO SCH (08:58)
[2020-06-15] MEDS: Gabapentin 300 MG CAPSULE PO SCH ×3 (08:58→19:27)
[2020-06-15] MEDS: Isosorbide MONOnitrate (24 HR) 60 MG TAB.ER.24H PO SCH (08:58)
[2020-06-15] MEDS: Dexamethasone 4 MG/ML VIAL IVP SCH (09:01)
[2020-06-15] MEDS: Aspirin Enteric Coated 81 MG Tablet PO SCH (09:02)
[2020-06-15] MEDS: Insulin DETEMIR 100 UNIT/ML X5UNITS SQ SCH ×2 (09:02→20:05)
[2020-06-15] MEDS: Cyanocobalamin (B-12) 1,000 MCG TABLET PO SCH (09:02)
[2020-06-15] MEDS: hydrALAZINE 25 MG TABLET PO SCH ×4 (09:06→19:28)
[2020-06-15] MEDS: Budesonide/Formoterol 80/4.5 1 PUFF INH IH SCH ×2 (09:47→21:27)
[2020-06-15 12:16] LABS: Hematocrit 36.5 % (37.5-50.1); Mean Corpuscular Hemoglobin 31.7 pg (28.0-33.3); Mean Corpuscular Volume 102.2 fL (83.0-100.0); Mean Platelet Volume 10.3 fL (9.4-12.4); Platelet Count 123 K/mcL (140-400); Red Blood Count 3.57 M/mcL (4.19-5.50); Red Cell Distribution Width 14.8 % (11.5-14.5); White Blood Count 6.5 K/mcL (4.3-11.1)
[2020-06-15 12:29] LABS: Hemoglobin 11.3 g/dL (12.9-16.9)
[2020-06-15 13:05] LABS: Phosphorous 4.6 mg/dL (2.7-4.5)
[2020-06-15 13:11] LABS: Calcium 7.5 mg/dL (8.6-10.3); Potassium 4.1 mEq/L (3.5-5.1)
[2020-06-15] MEDS: *HR* Labetalol 20 MG/4 ML SYRINGE IVP PRN (13:11)
[2020-06-15] MEDS: Mirtazapine 15 MG TABLET PO SCH (19:27)
[2020-06-16 01:17] LABS: Hematocrit 38.2 % (37.5-50.1); Hemoglobin 12.1 g/dL (12.9-16.9); Mean Corpuscular HGB Conc 31.7 g/dL (31.6-35.5); Mean Corpuscular Hemoglobin 31.7 pg (28.0-33.3); Mean Platelet Volume 9.5 fL (9.4-12.4); Platelet Count 127 K/mcL (140-400); Red Blood Count 3.82 M/mcL (4.19-5.50); Red Cell Distribution Width 14.8 % (11.5-14.5); White Blood Count 4.4 K/mcL (4.3-11.1)
[2020-06-16 01:32] LABS: Calcium 7.9 mg/dL (8.6-10.3); Magnesium 2.2 mg/dL (1.6-2.6); Potassium 4.4 mEq/L (3.5-5.1)
[2020-06-16] MEDS: *HR* Labetalol 20 MG/4 ML SYRINGE IVP PRN (03:17)
[2020-06-16] MEDS: Ipratropium 1 PUFF INHALER IH SCH ×4 (03:33→21:34)
[2020-06-16] MEDS: Piperacillin/Tazobactam 3.375 GM in 0.9 % Sodium Chloride Mini Bag 100 ML IVPB SCH ×2 (05:09→16:52)
[2020-06-16] MEDS: Metoprolol XL (24 HR) Succ 50 MG TAB.ER.24H PO SCH (05:47)
[2020-06-16] MEDS ORDERED: 0.9 % Sodium Chloride 250 ML IVC PRN (07:23)
[2020-06-16] MEDS: Finasteride 5 MG TABLET PO SCH (07:51)
[2020-06-16] MEDS: Vitamin B Complex/Vit C/Vit E 1 EACH TABLET PO SCH (07:51)
[2020-06-16] MEDS: Aspirin Enteric Coated 81 MG Tablet PO SCH (07:51)
[2020-06-16] MEDS: Apixaban 5 MG TABLET PO SCH ×2 (07:51→19:36)
[2020-06-16] MEDS: NIFEdipine XL (24 HR) 60 MG TAB.ER.24 PO SCH (07:51)
[2020-06-16] MEDS: Cyanocobalamin (B-12) 1,000 MCG TABLET PO SCH (07:51)
[2020-06-16] MEDS: Artificial Tears SOLN 15 ML BOTTLE BOTH EYES SCH ×3 (07:52→19:37)
[2020-06-16] MEDS: Isosorbide MONOnitrate (24 HR) 60 MG TAB.ER.24H PO SCH (07:52)
[2020-06-16] MEDS: Gabapentin 300 MG CAPSULE PO SCH ×3 (07:52→19:36)
[2020-06-16] MEDS: hydrALAZINE 25 MG TABLET PO SCH ×3 (07:52→23:02)
[2020-06-16] MEDS: Furosemide 20 MG TABLET PO SCH (07:52)
[2020-06-16] MEDS: Insulin DETEMIR 100 UNIT/ML X5UNITS SQ SCH ×2 (07:54→20:34)
[2020-06-16] MEDS: Insulin LISPRO 300 UNITS/3 ML VIAL SQ SCH ×4 (08:08→20:34)
[2020-06-16] MEDS ORDERED: *HR* Heparin 10,000 UNIT/10 ML VIAL IV PRN (09:29)
[2020-06-16] MEDS: Budesonide/Formoterol 80/4.5 1 PUFF INH IH SCH ×2 (10:46→21:35)
[2020-06-16] MEDS: Acetaminophen 325 MG TABLET PO PRN (17:08)
[2020-06-16] MEDS: Mirtazapine 15 MG TABLET PO SCH (19:35)
[2020-06-17] MEDS: Ipratropium 1 PUFF INHALER IH SCH ×4 (03:11→21:17)
[2020-06-17] MEDS: Piperacillin/Tazobactam 3.375 GM in 0.9 % Sodium Chloride Mini Bag 100 ML IVPB SCH ×2 (05:15→17:41)
[2020-06-17 05:55] LABS: Hematocrit 33.7 % (37.5-50.1); Hemoglobin 10.6 g/dL (12.9-16.9); Mean Corpuscular HGB Conc 31.5 g/dL (31.6-35.5); Mean Corpuscular Hemoglobin 31.8 pg (28.0-33.3); Mean Corpuscular Volume 101.2 fL (83.0-100.0); Mean Platelet Volume 10.7 fL (9.4-12.4); Platelet Count 111 K/mcL (140-400); Red Blood Count 3.33 M/mcL (4.19-5.50); White Blood Count 4.7 K/mcL (4.3-11.1)
[2020-06-17 06:18] LABS: Calcium 7.5 mg/dL (8.6-10.3); Phosphorous 4.9 mg/dL (2.7-4.5); Potassium 4.4 mEq/L (3.5-5.1)
[2020-06-17] MEDS: Insulin LISPRO 300 UNITS/3 ML VIAL SQ SCH ×5 (07:51→19:58)
[2020-06-17] MEDS: Finasteride 5 MG TABLET PO SCH (07:52)
[2020-06-17] MEDS: Vitamin B Complex/Vit C/Vit E 1 EACH TABLET PO SCH (07:52)
[2020-06-17] MEDS: Cyanocobalamin (B-12) 1,000 MCG TABLET PO SCH (07:52)
[2020-06-17] MEDS: Apixaban 5 MG TABLET PO SCH ×2 (07:52→19:26)
[2020-06-17] MEDS: Aspirin Enteric Coated 81 MG Tablet PO SCH (07:52)
[2020-06-17] MEDS: NIFEdipine XL (24 HR) 60 MG TAB.ER.24 PO SCH (07:52)
[2020-06-17] MEDS: Furosemide 20 MG TABLET PO SCH (07:52)
[2020-06-17] MEDS: Metoprolol XL (24 HR) Succ 50 MG TAB.ER.24H PO SCH (07:52)
[2020-06-17] MEDS: Isosorbide MONOnitrate (24 HR) 60 MG TAB.ER.24H PO SCH (07:53)
[2020-06-17] MEDS: Gabapentin 300 MG CAPSULE PO SCH ×3 (07:53→19:26)
[2020-06-17] MEDS: hydrALAZINE 25 MG TABLET PO SCH ×3 (07:53→23:35)
[2020-06-17] MEDS: Artificial Tears SOLN 15 ML BOTTLE BOTH EYES SCH ×3 (07:54→19:58)
[2020-06-17] MEDS: Insulin DETEMIR 100 UNIT/ML X5UNITS SQ SCH ×3 (07:58→19:27)
[2020-06-17] MEDS: Acetaminophen 325 MG TABLET PO PRN (08:14)
[2020-06-17] MEDS: Budesonide/Formoterol 80/4.5 1 PUFF INH IH SCH ×2 (09:05→21:17)
[2020-06-17] MEDS: Dexamethasone 4 MG/ML VIAL IVP SCH (14:06)
[2020-06-17 14:28] LABS: Hematocrit 39.1 % (37.5-50.1); Hemoglobin 11.9 g/dL (12.9-16.9)
[2020-06-17] MEDS ORDERED: *HR* Metoprolol 5 MG/5 ML VIAL IVP PRN (17:36)
[2020-06-17] MEDS: Mirtazapine 15 MG TABLET PO SCH (19:26)
[2020-06-18] MEDS: Ipratropium 1 PUFF INHALER IH SCH ×2 (03:10→09:42)
[2020-06-18] MEDS: Piperacillin/Tazobactam 3.375 GM in 0.9 % Sodium Chloride Mini Bag 100 ML IVPB SCH (05:50)
[2020-06-18 06:42] LABS: Hematocrit 33.7 % (37.5-50.1); Hemoglobin 10.6 g/dL (12.9-16.9); Mean Corpuscular HGB Conc 31.5 g/dL (31.6-35.5); Mean Corpuscular Volume 98.5 fL (83.0-100.0); Mean Platelet Volume 10.6 fL (9.4-12.4); Platelet Count 135 K/mcL (140-400); Red Blood Count 3.42 M/mcL (4.19-5.50); Red Cell Distribution Width 14.7 % (11.5-14.5); White Blood Count 5.7 K/mcL (4.3-11.1)
[2020-06-18 07:05] LABS: Calcium 7.5 mg/dL (8.6-10.3); Magnesium 2.3 mg/dL (1.6-2.6); Phosphorous 6.3 mg/dL (2.7-4.5); Potassium 4.8 mEq/L (3.5-5.1)
[2020-06-18] MEDS ORDERED: 0.9 % Sodium Chloride 250 ML IVC PRN (07:27)
[2020-06-18 07:29] LABS: Folate 20.5 ng/mL (3.0-16.0)
[2020-06-18] MEDS: Insulin LISPRO 300 UNITS/3 ML VIAL SQ SCH ×2 (08:14→10:48)
[2020-06-18] MEDS: Finasteride 5 MG TABLET PO SCH (08:15)
[2020-06-18] MEDS: Apixaban 5 MG TABLET PO SCH (08:15)
[2020-06-18] MEDS: Insulin DETEMIR 100 UNIT/ML X5UNITS SQ SCH (08:16)
[2020-06-18] MEDS: Gabapentin 300 MG CAPSULE PO SCH ×2 (08:16→14:51)
[2020-06-18] MEDS: NIFEdipine XL (24 HR) 60 MG TAB.ER.24 PO SCH (08:16)
[2020-06-18] MEDS: Cyanocobalamin (B-12) 1,000 MCG TABLET PO SCH (08:16)
[2020-06-18] MEDS: Aspirin Enteric Coated 81 MG Tablet PO SCH (08:16)
[2020-06-18] MEDS: Furosemide 20 MG TABLET PO SCH (08:16)
[2020-06-18] MEDS: Vitamin B Complex/Vit C/Vit E 1 EACH TABLET PO SCH (08:16)
[2020-06-18] MEDS: Dexamethasone 4 MG/ML VIAL IVP SCH (08:17)
[2020-06-18] MEDS: Artificial Tears SOLN 15 ML BOTTLE BOTH EYES SCH ×2 (08:17→14:51)
[2020-06-18] MEDS: Budesonide/Formoterol 80/4.5 1 PUFF INH IH SCH (09:42)
[2020-06-18] MEDS: Metoprolol XL (24 HR) Succ 50 MG TAB.ER.24H PO SCH (09:53)
[2020-06-18] MEDS: hydrALAZINE 25 MG TABLET PO SCH ×2 (09:53→14:51)
[2020-06-18] MEDS: Isosorbide MONOnitrate (24 HR) 60 MG TAB.ER.24H PO SCH (09:53)
[2020-06-18 10:22] VITALS: BP 136/70
[2020-06-18] MEDS: Acetaminophen 325 MG TABLET PO PRN (10:49)
== END 2020-06-18 15:30 | DRG 177 ==
LOC: EMEROOARM 08:01 → 2NENU 15:15 → SUATTDRO 15:15 → 2NENU 15:39
PROVIDERS: ADMIT Pharmacist; ATTEND Internal Medicine

== ENCOUNTER 2020-06-19 19:44 | Inpatient (IN) ==
[2020-06-19] MEDS ORDERED: 0.9 % Sodium Chloride 1,000 ML IVC ONE (19:49)
[2020-06-19] MEDS ORDERED: Dexamethasone 4 MG/ML VIAL IVP ONE (19:52)
[2020-06-19 21:09] LABS: INR 1.3; Prothrombin Time 14.8 Seconds (9.4-12.1)
[2020-06-19 21:13] LABS: Basophils % 0.3 %; Hematocrit 38.9 % (37.5-50.1); Immature Granulocytes % 0.8 % (0-4); Lymphocytes # 0.4 K/mcL (0.6-4.6); Lymphocytes % 5.5 %; Mean Corpuscular HGB Conc 31.6 g/dL (31.6-35.5); Mean Corpuscular Hemoglobin 31.3 pg (28.0-33.3); Mean Platelet Volume 10.2 fL (9.4-12.4); Monocytes # 0.3 K/mcL (0.0-1.3); Monocytes % 4.4 %; Neutrophils # 6.5 K/mcL (1.6-8.9); Platelet Count 184 K/mcL (140-400); Red Blood Count 3.93 M/mcL (4.19-5.50); Red Cell Distribution Width 14.5 % (11.5-14.5); White Blood Count 7.3 K/mcL (4.3-11.1)
[2020-06-19 21:17] LABS: Hemoglobin 12.3 g/dL (12.9-16.9)
[2020-06-19 21:22] LABS: Bilirubin,Urine Negative (Negative); Blood,Urine Moderate (Negative); Clarity,Urine Ex.Turbid (Clear); Color,Urine Yellow (Yellow); Glucose,Urine (UA) Normal (Normal); Ketones,Urine Negative (Negative); Leukocyte Esterase,Urine Large (Negative); Nitrite,Urine Negative (Negative); Protein,Urine >=300 mg/dL (Neg-Trace); Specific Gravity,Urine 1.014 (1.010-1.025)
[2020-06-19 21:23] LABS: Bacteria,Urine Few per hpf (None-Few); Budding Yeast,Urine Many per hpf (None Seen); Hyaline Casts,Urine None Seen per lpf (None Seen); Squamous Epithelial Cell,Urine Few per hpf (None-Few); WBC,Urine 30-50 per hpf (0-3)
[2020-06-19 21:26] LABS: Albumin 3.2 g/dL (3.5-5.7); Bilirubin,Direct 0.2 mg/dL (0.0-0.2); Bilirubin,Indirect 0.4 mg/dL (0.0-1.0); Bilirubin,Total 0.6 mg/dL (0.3-1.0); Globulin 3.1 g/dL (2.4-3.5); Potassium 4.2 mEq/L (3.5-5.1); Total Protein 6.3 g/dL (6.4-8.9); Troponin I 0.1 ng/mL (< 0.04)
[2020-06-19] MEDS ORDERED: Piperacillin/Tazobactam 3.375 GM in 0.9 % Sodium Chloride Mini Bag 100 ML IVPB ONE (21:27)
[2020-06-19] MEDS ORDERED: Azithromycin 500 MG in 0.9 % Sodium Chloride 250 ML IVPB ONE (21:28)
[2020-06-19] MEDS ORDERED: Vancomycin 1,500 MG/265 ML IV.SOLN IVPB ONE (21:28)
[2020-06-19 23:17] LABS: Adenovirus Not Detected (Not Detect); Coronavirus 229E Not Detected (Not Detect); Coronavirus HKU1 Not Detected (Not Detect); Coronavirus NL63 Not Detected (Not Detect); Coronavirus OC43 Not Detected (Not Detect)
[2020-06-19 23:19] LABS: Bordetella Pertussis Not Detected (Not Detect); Chlamydophila pneumoniae Not Detected (Not Detect); Human Metapneumovirus Not Detected (Not Detect); Human Rhinovirus/Enterovirus Not Detected (Not Detect); Influenza A Subtype 2009 H1 Not Detected (Not Detect); Influenza B Not Detected (Not Detect); Mycoplasma pneumoniae Not Detected (Not Detect); Parainfluenza Virus 1 Not Detected (Not Detect); Parainfluenza Virus 2 Not Detected (Not Detect); Parainfluenza Virus 3 Not Detected (Not Detect); Parainfluenza Virus 4 Not Detected (Not Detect); Respiratory Syncytial Virus Not Detected (Not Detect); SARS-CoV-2 DETECTED (Not Detect)
[2020-06-20] MEDS ORDERED: Naloxone 0.4 MG/ML INJ IVP PRN (01:24)
[2020-06-20] MEDS ORDERED: Ondansetron ODT 4 MG TAB.RAPDIS SL PRN (01:24)
[2020-06-20] MEDS ORDERED: Vancomycin 1 EACH in 0.9 % Sodium Chloride 250 ML IVPB PRN (04:00)
[2020-06-20] MEDS ORDERED: *HR* Heparin 5,000 UNIT/ML VIAL IVP ONE (04:13)
[2020-06-20] MEDS ORDERED: *HR* Heparin 5,000 UNIT/ML VIAL IVP PRN ×2 (04:13)
[2020-06-20] MEDS ORDERED: Heparin 25,000UNIT/250ML 1/2NS 25,000 UNIT/250 ML IV.SOLN IVC SCH ×2 (04:15→04:30)
[2020-06-20 04:35] LABS: Basophils % 0.2 %; Hematocrit 37.6 % (37.5-50.1); Hemoglobin 11.6 g/dL (12.9-16.9); Immature Granulocytes % 1.1 % (0-4); Lymphocytes # 0.2 K/mcL (0.6-4.6); Lymphocytes % 3.5 %; Mean Corpuscular HGB Conc 30.9 g/dL (31.6-35.5); Mean Corpuscular Hemoglobin 30.5 pg (28.0-33.3); Mean Corpuscular Volume 98.9 fL (83.0-100.0); Mean Platelet Volume 9.8 fL (9.4-12.4); Monocytes # 0.2 K/mcL (0.0-1.3); Monocytes % 2.9 %; Platelet Count 162 K/mcL (140-400); Red Cell Distribution Width 14.6 % (11.5-14.5); Segmented Neutrophils % 92.3 %; White Blood Count 6.5 K/mcL (4.3-11.1)
[2020-06-20 04:44] LABS: INR 1.2; Prothrombin Time 13.4 Seconds (9.4-12.1)
[2020-06-20 04:45] LABS: Activated Partial Thrombo Time 31.9 Seconds (26.0-36.0)
[2020-06-20] MEDS ORDERED: Vancomycin 1,500 MG/265 ML IV.SOLN IVPB ONE (05:00)
[2020-06-20 05:07] LABS: Albumin 2.6 g/dL (3.5-5.7); Albumin/Globulin Ratio 0.9 (1.1-2.2); Bilirubin,Total 0.6 mg/dL (0.3-1.0); Calcium 7.4 mg/dL (8.6-10.3); Globulin 2.9 g/dL (2.4-3.5); Potassium 4.1 mEq/L (3.5-5.1); Total Protein 5.5 g/dL (6.4-8.9)
[2020-06-20 05:14] LABS: C-Reactive Protein 191 mg/L (Less than 10); Creatine Kinase 121 Units/L (30-223); Lactate Dehydrogenase 364 Units/L (140-271)
[2020-06-20 05:21] LABS: Heparin anti-factor XA UFH 1.41 IU/mL (0.30-0.70)
[2020-06-20 06:22] LABS: Ferritin > 1500 ng/mL (20-250)
[2020-06-20] MEDS ORDERED: 0.9 % Sodium Chloride 250 ML IVC PRN (07:06)
[2020-06-20] MEDS ORDERED: 0.9 % Sodium Chloride 1,000 ML PRIME SCH (07:15)
[2020-06-20] MEDS ORDERED: Piperacillin/Tazobactam 3.375 GM in 0.9 % Sodium Chloride Mini Bag 100 ML IVPB SCH (08:00)
[2020-06-20 09:38] LABS: Troponin I 0.09 ng/mL (< 0.04)
[2020-06-20] MEDS ORDERED: *HR* Heparin 10,000 UNIT/10 ML VIAL IV PRN (11:27)
[2020-06-20] MEDS: Dexamethasone 4 MG/ML VIAL IVP SCH (12:51)
[2020-06-20] MEDS: Metoprolol XL (24 HR) Succ 50 MG TAB.ER.24H PO SCH (12:51)
[2020-06-20] MEDS: Piperacillin/Tazobactam 3.375 GM in 0.9 % Sodium Chloride Mini Bag 100 ML IVPB SCH ×2 (12:51→21:35)
[2020-06-20] MEDS ORDERED: Lidocaine OINT 35.44 GM TUBE TP PRN (13:02)
[2020-06-20] MEDS ORDERED: Methyl Salicylate/Menthol 57 APPL/57 GM TUBE TP PRN (13:02)
[2020-06-20] MEDS ORDERED: D5% in Water 1,000 ML IVC PRN (13:06)
[2020-06-20] MEDS ORDERED: Dextrose Gel 15 GM/37.5 ML TUBE PO PRN ×2 (13:06)
[2020-06-20] MEDS: Artificial Tears SOLN 15 ML BOTTLE BOTH EYES SCH ×3 (16:41→21:28)
[2020-06-20] MEDS: Gabapentin 300 MG CAPSULE PO SCH ×3 (16:41→21:33)
[2020-06-20] MEDS: methocarbamoL 750 MG TABLET PO SCH ×3 (16:41→21:33)
[2020-06-20] MEDS: Insulin LISPRO 300 UNITS/3 ML VIAL SQ SCH ×3 (16:42→21:55)
[2020-06-20] MEDS: Apixaban 5 MG TABLET PO SCH ×3 (16:42→18:42)
[2020-06-20] MEDS: Budesonide/Formoterol 80/4.5 1 PUFF INH IH SCH (20:03)
[2020-06-20] MEDS: hydrALAZINE 25 MG TABLET PO SCH (21:28)
[2020-06-20] MEDS: Mirtazapine 15 MG TABLET PO SCH (21:28)
[2020-06-20] MEDS: Azithromycin 500 MG in 0.9 % Sodium Chloride 250 ML IVPB SCH (21:34)
[2020-06-20] MEDS: *HR* Metoprolol 5 MG/5 ML VIAL IVP ONE (22:04)
[2020-06-21] MEDS ORDERED: *HR* Metoprolol 5 MG/5 ML VIAL IVP ONE ×2 (02:13→06:28)
[2020-06-21] MEDS: *HR* Metoprolol 5 MG/5 ML VIAL IVP ONE (02:36)
[2020-06-21 04:25] LABS: Basophils % 0.1 %; Hematocrit 37.6 % (37.5-50.1); Hemoglobin 11.6 g/dL (12.9-16.9); Lymphocytes # 0.4 K/mcL (0.6-4.6); Lymphocytes % 4.7 %; Mean Corpuscular HGB Conc 30.9 g/dL (31.6-35.5); Mean Corpuscular Hemoglobin 30.7 pg (28.0-33.3); Mean Corpuscular Volume 99.5 fL (83.0-100.0); Mean Platelet Volume 10.4 fL (9.4-12.4); Monocytes # 0.5 K/mcL (0.0-1.3); Monocytes % 5.5 %; Neutrophils # 8.1 K/mcL (1.6-8.9); Platelet Count 199 K/mcL (140-400); Red Blood Count 3.78 M/mcL (4.19-5.50); Red Cell Distribution Width 14.6 % (11.5-14.5); Segmented Neutrophils % 88.7 %; White Blood Count 9.1 K/mcL (4.3-11.1)
[2020-06-21 04:45] LABS: Calcium 7.6 mg/dL (8.6-10.3); Potassium 4.6 mEq/L (3.5-5.1)
[2020-06-21 04:50] LABS: Troponin I 0.06 ng/mL (< 0.04)
[2020-06-21] MEDS: Budesonide/Formoterol 80/4.5 1 PUFF INH IH SCH ×2 (07:18→19:59)
[2020-06-21] MEDS: Aspirin Enteric Coated 81 MG Tablet PO SCH (07:40)
[2020-06-21] MEDS: Gabapentin 300 MG CAPSULE PO SCH ×3 (07:40→22:00)
[2020-06-21] MEDS: Metoprolol XL (24 HR) Succ 50 MG TAB.ER.24H PO SCH (07:40)
[2020-06-21] MEDS: NIFEdipine XL (24 HR) 60 MG TAB.ER.24 PO SCH (07:40)
[2020-06-21] MEDS: Finasteride 5 MG TABLET PO SCH (07:40)
[2020-06-21] MEDS: Vitamin B Complex/Vit C/Vit E 1 EACH TABLET PO SCH (07:40)
[2020-06-21] MEDS: Apixaban 5 MG TABLET PO SCH ×2 (07:40→22:00)
[2020-06-21] MEDS: methocarbamoL 750 MG TABLET PO SCH ×3 (07:40→22:01)
[2020-06-21] MEDS: hydrALAZINE 25 MG TABLET PO SCH ×2 (07:41→22:00)
[2020-06-21] MEDS: Artificial Tears SOLN 15 ML BOTTLE BOTH EYES SCH ×3 (07:41→22:01)
[2020-06-21] MEDS: Dexamethasone 4 MG/ML VIAL IVP SCH (07:41)
[2020-06-21] MEDS: amLODIPine 5 MG TABLET PO SCH (07:41)
[2020-06-21] MEDS: Isosorbide MONOnitrate (24 HR) 60 MG TAB.ER.24H PO SCH (07:41)
[2020-06-21] MEDS: Cyanocobalamin (B-12) 1,000 MCG TABLET PO SCH (07:41)
[2020-06-21] MEDS: Furosemide 20 MG TABLET PO SCH (07:41)
[2020-06-21] MEDS: Insulin LISPRO 300 UNITS/3 ML VIAL SQ SCH ×4 (07:42→22:01)
[2020-06-21] MEDS: Piperacillin/Tazobactam 3.375 GM in 0.9 % Sodium Chloride Mini Bag 100 ML IVPB SCH ×2 (11:21→21:57)
[2020-06-21] MEDS: Vancomycin Oral Soln 125 MG/2.5 ML UDC PO SCH ×3 (14:38→22:00)
[2020-06-21] MEDS: Insulin DETEMIR 100 UNIT/ML X5UNITS SQ SCH (21:56)
[2020-06-21] MEDS: Azithromycin 500 MG in 0.9 % Sodium Chloride 250 ML IVPB SCH (21:56)
[2020-06-21] MEDS: Mirtazapine 15 MG TABLET PO SCH (22:01)
[2020-06-22 04:57] LABS: Basophils % 0.2 %; Hematocrit 36.7 % (37.5-50.1); Hemoglobin 11.2 g/dL (12.9-16.9); Immature Granulocytes % 1.2 % (0-4); Lymphocytes # 0.5 K/mcL (0.6-4.6); Lymphocytes % 3.9 %; Mean Corpuscular HGB Conc 30.5 g/dL (31.6-35.5); Mean Corpuscular Hemoglobin 30.7 pg (28.0-33.3); Mean Corpuscular Volume 100.5 fL (83.0-100.0); Mean Platelet Volume 9.3 fL (9.4-12.4); Monocytes # 0.7 K/mcL (0.0-1.3); Monocytes % 5.1 %; Neutrophils # 11.9 K/mcL (1.6-8.9); Platelet Count 294 K/mcL (140-400); Red Blood Count 3.65 M/mcL (4.19-5.50); Red Cell Distribution Width 14.8 % (11.5-14.5); Segmented Neutrophils % 89.6 %; White Blood Count 13.2 K/mcL (4.3-11.1)
[2020-06-22 05:20] LABS: Calcium 7.4 mg/dL (8.6-10.3); Potassium 4.6 mEq/L (3.5-5.1)
[2020-06-22] MEDS ORDERED: 0.9 % Sodium Chloride 250 ML IVC PRN (06:27)
[2020-06-22] MEDS: Budesonide/Formoterol 80/4.5 1 PUFF INH IH SCH ×2 (07:31→20:19)
[2020-06-22] MEDS: methocarbamoL 750 MG TABLET PO SCH ×3 (08:05→22:31)
[2020-06-22] MEDS: Cyanocobalamin (B-12) 1,000 MCG TABLET PO SCH (08:05)
[2020-06-22] MEDS: Furosemide 20 MG TABLET PO SCH (08:06)
[2020-06-22] MEDS: Metoprolol XL (24 HR) Succ 50 MG TAB.ER.24H PO SCH (08:06)
[2020-06-22] MEDS: Finasteride 5 MG TABLET PO SCH (08:06)
[2020-06-22] MEDS: Apixaban 5 MG TABLET PO SCH ×2 (08:06→20:45)
[2020-06-22] MEDS: Gabapentin 300 MG CAPSULE PO SCH ×3 (08:06→20:45)
[2020-06-22] MEDS: Vitamin B Complex/Vit C/Vit E 1 EACH TABLET PO SCH (08:06)
[2020-06-22] MEDS: Isosorbide MONOnitrate (24 HR) 60 MG TAB.ER.24H PO SCH (08:06)
[2020-06-22] MEDS: amLODIPine 5 MG TABLET PO SCH (08:06)
[2020-06-22] MEDS: Aspirin Enteric Coated 81 MG Tablet PO SCH (08:06)
[2020-06-22] MEDS: hydrALAZINE 25 MG TABLET PO SCH ×2 (08:07→20:45)
[2020-06-22] MEDS: Dexamethasone 4 MG/ML VIAL IVP SCH (08:07)
[2020-06-22] MEDS: Artificial Tears SOLN 15 ML BOTTLE BOTH EYES SCH ×3 (08:07→19:59)
[2020-06-22] MEDS: Vancomycin Oral Soln 125 MG/2.5 ML UDC PO SCH ×4 (08:07→20:45)
[2020-06-22] MEDS: Insulin DETEMIR 100 UNIT/ML X5UNITS SQ SCH ×2 (08:08→20:46)
[2020-06-22] MEDS: NIFEdipine XL (24 HR) 60 MG TAB.ER.24 PO SCH (08:08)
[2020-06-22] MEDS: Insulin LISPRO 300 UNITS/3 ML VIAL SQ SCH ×4 (08:08→20:45)
[2020-06-22] MEDS ORDERED: *HR* Heparin 10,000 UNIT/10 ML VIAL IV PRN (10:27)
[2020-06-22] MEDS: Piperacillin/Tazobactam 3.375 GM in 0.9 % Sodium Chloride Mini Bag 100 ML IVPB SCH ×2 (11:45→22:14)
[2020-06-22] MEDS ORDERED: Vancomycin 250 MG in 0.9 % Sodium Chloride Mini Bag 100 ML IVPB ONE (16:00)
[2020-06-22] MEDS: Azithromycin 250 MG TABLET PO SCH (20:45)
[2020-06-22] MEDS: Mirtazapine 15 MG TABLET PO SCH (20:45)
[2020-06-23] MEDS: *HR* Dextrose 50 % in Water (Vial) 50 ML VIAL IVP PRN ×2 (04:29→12:34)
[2020-06-23 06:09] LABS: Basophils % 0.2 %; Hematocrit 36.8 % (37.5-50.1); Hemoglobin 11.7 g/dL (12.9-16.9); Lymphocytes # 0.5 K/mcL (0.6-4.6); Lymphocytes % 4.3 %; Mean Corpuscular HGB Conc 31.8 g/dL (31.6-35.5); Mean Corpuscular Hemoglobin 31.3 pg (28.0-33.3); Mean Corpuscular Volume 98.4 fL (83.0-100.0); Mean Platelet Volume 9.4 fL (9.4-12.4); Monocytes # 0.5 K/mcL (0.0-1.3); Monocytes % 4.5 %; Neutrophils # 10.6 K/mcL (1.6-8.9); Platelet Count 303 K/mcL (140-400); Red Blood Count 3.74 M/mcL (4.19-5.50); Red Cell Distribution Width 14.7 % (11.5-14.5); White Blood Count 11.8 K/mcL (4.3-11.1)
[2020-06-23 06:37] LABS: Calcium 8.1 mg/dL (8.6-10.3); Potassium 3.7 mEq/L (3.5-5.1)
[2020-06-23] MEDS: Insulin LISPRO 300 UNITS/3 ML VIAL SQ SCH ×4 (08:03→21:45)
[2020-06-23] MEDS: Dexamethasone 4 MG/ML VIAL IVP SCH (08:14)
[2020-06-23] MEDS: Cyanocobalamin (B-12) 1,000 MCG TABLET PO SCH (08:15)
[2020-06-23] MEDS: Aspirin Enteric Coated 81 MG Tablet PO SCH (08:15)
[2020-06-23] MEDS: Gabapentin 300 MG CAPSULE PO SCH ×3 (08:15→21:38)
[2020-06-23] MEDS: hydrALAZINE 25 MG TABLET PO SCH ×2 (08:15→21:42)
[2020-06-23] MEDS: NIFEdipine XL (24 HR) 60 MG TAB.ER.24 PO SCH (08:16)
[2020-06-23] MEDS: amLODIPine 5 MG TABLET PO SCH (08:16)
[2020-06-23] MEDS: Finasteride 5 MG TABLET PO SCH (08:16)
[2020-06-23] MEDS: Isosorbide MONOnitrate (24 HR) 60 MG TAB.ER.24H PO SCH (08:16)
[2020-06-23] MEDS: Metoprolol XL (24 HR) Succ 50 MG TAB.ER.24H PO SCH (08:16)
[2020-06-23] MEDS: Vitamin B Complex/Vit C/Vit E 1 EACH TABLET PO SCH (08:16)
[2020-06-23] MEDS: Apixaban 5 MG TABLET PO SCH ×2 (08:16→21:41)
[2020-06-23] MEDS: Furosemide 20 MG TABLET PO SCH (08:16)
[2020-06-23] MEDS: Insulin DETEMIR 100 UNIT/ML X5UNITS SQ SCH (08:17)
[2020-06-23] MEDS: Vancomycin Oral Soln 125 MG/2.5 ML UDC PO SCH ×4 (08:17→21:43)
[2020-06-23] MEDS: Artificial Tears SOLN 15 ML BOTTLE BOTH EYES SCH ×3 (08:17→21:45)
[2020-06-23] MEDS: methocarbamoL 750 MG TABLET PO SCH ×3 (08:19→21:37)
[2020-06-23] MEDS: Budesonide/Formoterol 80/4.5 1 PUFF INH IH SCH ×2 (10:10→20:13)
[2020-06-23] MEDS: Piperacillin/Tazobactam 3.375 GM in 0.9 % Sodium Chloride Mini Bag 100 ML IVPB SCH ×2 (10:17→21:46)
[2020-06-23] MEDS ORDERED: Insulin DETEMIR 100 UNIT/ML X5UNITS SQ SCH (21:00)
[2020-06-23] MEDS: Azithromycin 250 MG TABLET PO SCH (21:38)
[2020-06-23] MEDS: Mirtazapine 15 MG TABLET PO SCH (21:42)
[2020-06-24] MEDS: Budesonide/Formoterol 80/4.5 1 PUFF INH IH SCH ×2 (09:36→19:43)
[2020-06-24] MEDS: Insulin LISPRO 300 UNITS/3 ML VIAL SQ SCH ×4 (09:47→22:20)
[2020-06-24] MEDS: Piperacillin/Tazobactam 3.375 GM in 0.9 % Sodium Chloride Mini Bag 100 ML IVPB SCH ×2 (09:48→22:17)
[2020-06-24] MEDS: Apixaban 5 MG TABLET PO SCH ×2 (09:49→22:19)
[2020-06-24] MEDS: Vitamin B Complex/Vit C/Vit E 1 EACH TABLET PO SCH (09:49)
[2020-06-24] MEDS: Finasteride 5 MG TABLET PO SCH (09:49)
[2020-06-24] MEDS: hydrALAZINE 25 MG TABLET PO SCH ×2 (09:49→22:19)
[2020-06-24] MEDS: Vancomycin Oral Soln 125 MG/2.5 ML UDC PO SCH ×4 (09:49→22:19)
[2020-06-24] MEDS: Cyanocobalamin (B-12) 1,000 MCG TABLET PO SCH (09:49)
[2020-06-24] MEDS: Aspirin Enteric Coated 81 MG Tablet PO SCH (09:49)
[2020-06-24] MEDS: methocarbamoL 750 MG TABLET PO SCH ×3 (09:49→22:18)
[2020-06-24] MEDS: Isosorbide MONOnitrate (24 HR) 60 MG TAB.ER.24H PO SCH (09:49)
[2020-06-24] MEDS: Furosemide 20 MG TABLET PO SCH (09:50)
[2020-06-24] MEDS: NIFEdipine XL (24 HR) 60 MG TAB.ER.24 PO SCH (09:50)
[2020-06-24] MEDS: Dexamethasone 4 MG/ML VIAL IVP SCH (09:50)
[2020-06-24] MEDS: Gabapentin 300 MG CAPSULE PO SCH ×3 (09:50→22:18)
[2020-06-24] MEDS: amLODIPine 5 MG TABLET PO SCH (09:50)
[2020-06-24] MEDS: Metoprolol XL (24 HR) Succ 50 MG TAB.ER.24H PO SCH (09:50)
[2020-06-24] MEDS: Artificial Tears SOLN 15 ML BOTTLE BOTH EYES SCH ×3 (09:51→22:16)
[2020-06-24] MEDS ORDERED: Insulin DETEMIR 100 UNIT/ML X5UNITS SQ SCH (10:15)
[2020-06-24 20:11] LABS: ABG Base Excess -1 mEq/L (-2 to 3); ABG HCO3 22 mEq/L (21-27); ABG Oxygen Saturation 97 % (95-98); ABG PCO2 31 mmHg (35-45); ABG PH 7.46 pH Units (7.32-7.45); ABG PO2 83 mmHg (85-104); ABG TCO2 23 mEq/L (20-26)
[2020-06-24] MEDS ORDERED: Acetaminophen IV 500 MG/50 ML INFUS..BTL IVPB ONE (20:11)
[2020-06-24 20:24] LABS: Basophils % 0.1 %; Hematocrit 30.6 % (37.5-50.1); Lymphocytes # 0.2 K/mcL (0.6-4.6); Lymphocytes % 2.1 %; Mean Corpuscular HGB Conc 31.4 g/dL (31.6-35.5); Mean Corpuscular Hemoglobin 30.9 pg (28.0-33.3); Mean Corpuscular Volume 98.4 fL (83.0-100.0); Mean Platelet Volume 9.5 fL (9.4-12.4); Monocytes # 0.3 K/mcL (0.0-1.3); Monocytes % 2.8 %; Neutrophils # 10.8 K/mcL (1.6-8.9); Platelet Count 224 K/mcL (140-400); Red Blood Count 3.11 M/mcL (4.19-5.50); Red Cell Distribution Width 14.6 % (11.5-14.5); White Blood Count 11.5 K/mcL (4.3-11.1)
[2020-06-24 20:25] LABS: Hemoglobin 9.6 g/dL (12.9-16.9)
[2020-06-24 20:27] LABS: INR 1.5; Prothrombin Time 17.1 Seconds (9.4-12.1)
[2020-06-24 20:31] LABS: Activated Partial Thrombo Time 26.8 Seconds (26.0-36.0)
[2020-06-24 20:39] LABS: Albumin 2.5 g/dL (3.5-5.7); Albumin/Globulin Ratio 0.9 (1.1-2.2); Bilirubin,Total 0.4 mg/dL (0.3-1.0); Calcium 7.8 mg/dL (8.6-10.3); Globulin 2.7 g/dL (2.4-3.5); Potassium 4.5 mEq/L (3.5-5.1); Total Protein 5.2 g/dL (6.4-8.9)
[2020-06-24] MEDS: Azithromycin 250 MG TABLET PO SCH (22:18)
[2020-06-24] MEDS: Mirtazapine 15 MG TABLET PO SCH (22:18)
[2020-06-24] MEDS: Insulin DETEMIR 100 UNIT/ML X5UNITS SQ SCH (22:22)
[2020-06-25 05:42] LABS: Basophils % 0.1 %; Eosinophils % 0.1 %; Hematocrit 32.2 % (37.5-50.1); Hemoglobin 10.3 g/dL (12.9-16.9); Immature Granulocytes % 0.6 % (0-4); Lymphocytes # 0.5 K/mcL (0.6-4.6); Lymphocytes % 3.2 %; Mean Corpuscular Hemoglobin 31.2 pg (28.0-33.3); Mean Corpuscular Volume 97.6 fL (83.0-100.0); Mean Platelet Volume 9.6 fL (9.4-12.4); Monocytes # 0.4 K/mcL (0.0-1.3); Monocytes % 2.8 %; Neutrophils # 13.6 K/mcL (1.6-8.9); Platelet Count 243 K/mcL (140-400); Red Cell Distribution Width 14.5 % (11.5-14.5); Segmented Neutrophils % 93.2 %; White Blood Count 14.5 K/mcL (4.3-11.1)
[2020-06-25 06:13] LABS: Calcium 8.1 mg/dL (8.6-10.3); Potassium 4.1 mEq/L (3.5-5.1)
[2020-06-25] MEDS: Budesonide/Formoterol 80/4.5 1 PUFF INH IH SCH ×2 (07:43→20:00)
[2020-06-25] MEDS ORDERED: *HR* Heparin 10,000 UNIT/10 ML VIAL IV PRN ×2 (07:51)
[2020-06-25] MEDS ORDERED: 0.9 % Sodium Chloride 250 ML IVC PRN (07:51)
[2020-06-25] MEDS: Vitamin B Complex/Vit C/Vit E 1 EACH TABLET PO SCH (08:47)
[2020-06-25] MEDS: Finasteride 5 MG TABLET PO SCH (08:47)
[2020-06-25] MEDS: Vancomycin Oral Soln 125 MG/2.5 ML UDC PO SCH ×4 (08:47→22:07)
[2020-06-25] MEDS: Gabapentin 300 MG CAPSULE PO SCH ×2 (08:48→14:38)
[2020-06-25] MEDS: Insulin DETEMIR 100 UNIT/ML X5UNITS SQ SCH ×2 (08:48→22:02)
[2020-06-25] MEDS: Dexamethasone 4 MG/ML VIAL IVP SCH (08:48)
[2020-06-25] MEDS: Cyanocobalamin (B-12) 1,000 MCG TABLET PO SCH (08:48)
[2020-06-25] MEDS: Aspirin Enteric Coated 81 MG Tablet PO SCH (08:48)
[2020-06-25] MEDS: Insulin LISPRO 300 UNITS/3 ML VIAL SQ SCH ×4 (08:50→22:01)
[2020-06-25] MEDS: methocarbamoL 750 MG TABLET PO SCH ×3 (08:53→22:03)
[2020-06-25] MEDS: Apixaban 5 MG TABLET PO SCH ×2 (08:53→22:01)
[2020-06-25] MEDS: Isosorbide MONOnitrate (24 HR) 60 MG TAB.ER.24H PO SCH (08:54)
[2020-06-25] MEDS: hydrALAZINE 25 MG TABLET PO SCH ×2 (08:54→22:02)
[2020-06-25] MEDS: Artificial Tears SOLN 15 ML BOTTLE BOTH EYES SCH ×3 (08:54→22:00)
[2020-06-25] MEDS: Furosemide 20 MG TABLET PO SCH (08:55)
[2020-06-25] MEDS: amLODIPine 5 MG TABLET PO SCH (08:55)
[2020-06-25] MEDS: Metoprolol XL (24 HR) Succ 50 MG TAB.ER.24H PO SCH (08:55)
[2020-06-25] MEDS: NIFEdipine XL (24 HR) 60 MG TAB.ER.24 PO SCH (08:55)
[2020-06-25] MEDS: Piperacillin/Tazobactam 3.375 GM in 0.9 % Sodium Chloride Mini Bag 100 ML IVPB SCH ×2 (10:02→22:07)
[2020-06-25] MEDS: Calcium Gluconate 1gm/50mL 1 GM/50 ML BAG IVPB PRN (15:07)
[2020-06-25] MEDS: Mirtazapine 15 MG TABLET PO SCH (22:03)
[2020-06-25] MEDS: Azithromycin 250 MG TABLET PO SCH (22:03)
[2020-06-26 08:39] LABS: Basophils % 0.1 %; Eosinophils # 0.1 K/mcL (0.0-0.6); Eosinophils % 0.6 %; Hematocrit 35.4 % (37.5-50.1); Hemoglobin 11.2 g/dL (12.9-16.9); Lymphocytes # 0.4 K/mcL (0.6-4.6); Lymphocytes % 3.1 %; Mean Corpuscular HGB Conc 31.6 g/dL (31.6-35.5); Mean Corpuscular Hemoglobin 30.6 pg (28.0-33.3); Mean Corpuscular Volume 96.7 fL (83.0-100.0); Mean Platelet Volume 9.3 fL (9.4-12.4); Monocytes # 0.4 K/mcL (0.0-1.3); Monocytes % 3.2 %; Neutrophils # 10.8 K/mcL (1.6-8.9); Platelet Count 211 K/mcL (140-400); Red Blood Count 3.66 M/mcL (4.19-5.50); Red Cell Distribution Width 14.4 % (11.5-14.5); White Blood Count 11.8 K/mcL (4.3-11.1)
[2020-06-26 08:53] LABS: Albumin 2.4 g/dL (3.5-5.7); Albumin/Globulin Ratio 0.8 (1.1-2.2); Bilirubin,Total 0.4 mg/dL (0.3-1.0); Calcium 7.8 mg/dL (8.6-10.3); Potassium 3.9 mEq/L (3.5-5.1); Total Protein 5.4 g/dL (6.4-8.9)
[2020-06-26] MEDS: Insulin LISPRO 300 UNITS/3 ML VIAL SQ SCH ×4 (08:58→21:14)
[2020-06-26] MEDS: Vancomycin Oral Soln 125 MG/2.5 ML UDC PO SCH ×4 (08:59→19:57)
[2020-06-26] MEDS: Isosorbide MONOnitrate (24 HR) 60 MG TAB.ER.24H PO SCH (08:59)
[2020-06-26] MEDS: Aspirin Enteric Coated 81 MG Tablet PO SCH (08:59)
[2020-06-26] MEDS: methocarbamoL 750 MG TABLET PO SCH ×3 (09:00→19:59)
[2020-06-26] MEDS: Vitamin B Complex/Vit C/Vit E 1 EACH TABLET PO SCH (09:00)
[2020-06-26] MEDS: Furosemide 20 MG TABLET PO SCH (09:00)
[2020-06-26] MEDS: Metoprolol XL (24 HR) Succ 50 MG TAB.ER.24H PO SCH (09:00)
[2020-06-26] MEDS: amLODIPine 5 MG TABLET PO SCH (09:00)
[2020-06-26] MEDS: Apixaban 5 MG TABLET PO SCH ×2 (09:00→19:57)
[2020-06-26] MEDS: NIFEdipine XL (24 HR) 60 MG TAB.ER.24 PO SCH ×2 (09:00→09:59)
[2020-06-26] MEDS: Finasteride 5 MG TABLET PO SCH (09:01)
[2020-06-26] MEDS: Cyanocobalamin (B-12) 1,000 MCG TABLET PO SCH (09:01)
[2020-06-26] MEDS: Dexamethasone 4 MG/ML VIAL IVP SCH (09:01)
[2020-06-26] MEDS: Artificial Tears SOLN 15 ML BOTTLE BOTH EYES SCH ×3 (09:01→19:56)
[2020-06-26] MEDS: hydrALAZINE 25 MG TABLET PO SCH ×2 (09:01→19:58)
[2020-06-26] MEDS: Piperacillin/Tazobactam 3.375 GM in 0.9 % Sodium Chloride Mini Bag 100 ML IVPB SCH ×2 (09:02→20:01)
[2020-06-26] MEDS: Insulin DETEMIR 100 UNIT/ML X5UNITS SQ SCH ×2 (09:04→19:58)
[2020-06-26] MEDS: Budesonide/Formoterol 80/4.5 1 PUFF INH IH SCH ×2 (12:09→19:48)
[2020-06-26] MEDS: Calcium Gluconate 1gm/50mL 1 GM/50 ML BAG IVPB PRN (15:24)
[2020-06-26] MEDS: Mirtazapine 15 MG TABLET PO SCH (19:59)
[2020-06-26] MEDS: Azithromycin 250 MG TABLET PO SCH (19:59)
[2020-06-27 07:20] LABS: Basophils % 0.2 %; Eosinophils % 0.2 %; Hematocrit 34.5 % (37.5-50.1); Hemoglobin 10.6 g/dL (12.9-16.9); Immature Granulocytes % 1.2 % (0-4); Lymphocytes # 0.4 K/mcL (0.6-4.6); Lymphocytes % 3.2 %; Mean Corpuscular HGB Conc 30.7 g/dL (31.6-35.5); Mean Corpuscular Hemoglobin 30.1 pg (28.0-33.3); Mean Platelet Volume 9.7 fL (9.4-12.4); Monocytes # 0.5 K/mcL (0.0-1.3); Monocytes % 4.2 %; Neutrophils # 10.9 K/mcL (1.6-8.9); Platelet Count 211 K/mcL (140-400); Red Blood Count 3.52 M/mcL (4.19-5.50); Red Cell Distribution Width 14.1 % (11.5-14.5)
[2020-06-27] MEDS ORDERED: *HR* Heparin 10,000 UNIT/10 ML VIAL IV PRN ×2 (07:36)
[2020-06-27] MEDS ORDERED: 0.9 % Sodium Chloride 250 ML IVC PRN (07:36)
[2020-06-27] MEDS ORDERED: 0.9 % Sodium Chloride 1,000 ML PRIME SCH (07:45)
[2020-06-27 07:51] LABS: Albumin 2.5 g/dL (3.5-5.7); Albumin/Globulin Ratio 0.9 (1.1-2.2); Bilirubin,Total 0.4 mg/dL (0.3-1.0); Calcium 7.8 mg/dL (8.6-10.3); Globulin 2.8 g/dL (2.4-3.5); Potassium 4.4 mEq/L (3.5-5.1); Total Protein 5.3 g/dL (6.4-8.9)
[2020-06-27] MEDS: Insulin LISPRO 300 UNITS/3 ML VIAL SQ SCH ×3 (07:54→17:04)
[2020-06-27] MEDS: Budesonide/Formoterol 80/4.5 1 PUFF INH IH SCH (08:24)
[2020-06-27] MEDS: Isosorbide MONOnitrate (24 HR) 60 MG TAB.ER.24H PO SCH ×2 (10:54→11:53)
[2020-06-27] MEDS: hydrALAZINE 25 MG TABLET PO SCH ×2 (10:54→11:51)
[2020-06-27] MEDS: Aspirin Enteric Coated 81 MG Tablet PO SCH (10:54)
[2020-06-27] MEDS: Metoprolol XL (24 HR) Succ 50 MG TAB.ER.24H PO SCH ×2 (10:55→11:54)
[2020-06-27] MEDS: NIFEdipine XL (24 HR) 60 MG TAB.ER.24 PO SCH (10:55)
[2020-06-27] MEDS: Cyanocobalamin (B-12) 1,000 MCG TABLET PO SCH (10:55)
[2020-06-27] MEDS: Finasteride 5 MG TABLET PO SCH (10:55)
[2020-06-27] MEDS: Apixaban 5 MG TABLET PO SCH (10:55)
[2020-06-27] MEDS: Vitamin B Complex/Vit C/Vit E 1 EACH TABLET PO SCH (10:55)
[2020-06-27] MEDS: methocarbamoL 750 MG TABLET PO SCH ×2 (10:55→17:04)
[2020-06-27] MEDS: Vancomycin Oral Soln 125 MG/2.5 ML UDC PO SCH ×2 (10:56→14:44)
[2020-06-27] MEDS: Dexamethasone 4 MG/ML VIAL IVP SCH (10:56)
[2020-06-27] MEDS: amLODIPine 5 MG TABLET PO SCH ×2 (10:56→11:53)
[2020-06-27] MEDS: Piperacillin/Tazobactam 3.375 GM in 0.9 % Sodium Chloride Mini Bag 100 ML IVPB SCH (10:57)
[2020-06-27] MEDS: Artificial Tears SOLN 15 ML BOTTLE BOTH EYES SCH ×2 (10:57→17:04)
[2020-06-27] MEDS: Furosemide 20 MG TABLET PO SCH (10:58)
[2020-06-27] MEDS: Insulin DETEMIR 100 UNIT/ML X5UNITS SQ SCH (11:06)
[2020-06-27 12:00] VITALS: BP 93/54
[2020-06-27] MEDS ORDERED: Gabapentin 300 MG CAPSULE PO SCH ×2 (16:00)
== END 2020-06-27 19:00 | DRG 871 ==
LOC: EMEROOARM 19:44 → 2NENU 19:44 → SUATTDRO 23:25 → 2NENU 06-20 00:06
PROVIDERS: ADMIT Student in an Organized Health Care Education/Training Program; ATTEND Family Medicine

== ENCOUNTER 2020-07-02 21:22 | Observation (INO) ==
[2020-07-02 22:03] LABS: VBG HCO3 24 mEq/L (21-27); VBG PCO2 37 mmHg (41-51); VBG PH 7.42 pH Units (7.32-7.42); VBG PO2 143 mmHg (25-50)
[2020-07-02 22:03] LABS: Basophils % 0.3 %; Eosinophils % 0.3 %; Hematocrit 31.3 % (37.5-50.1); Hemoglobin 9.9 g/dL (12.9-16.9); Immature Granulocytes % 0.8 % (0-4); Lymphocytes # 0.7 K/mcL (0.6-4.6); Lymphocytes % 6.4 %; Mean Corpuscular HGB Conc 31.6 g/dL (31.6-35.5); Mean Corpuscular Volume 98.1 fL (83.0-100.0); Mean Platelet Volume 9.1 fL (9.4-12.4); Monocytes # 0.7 K/mcL (0.0-1.3); Monocytes % 6.1 %; Neutrophils # 10.1 K/mcL (1.6-8.9); Platelet Count 221 K/mcL (140-400); Red Blood Count 3.19 M/mcL (4.19-5.50); Red Cell Distribution Width 13.9 % (11.5-14.5); Segmented Neutrophils % 86.1 %; White Blood Count 11.7 K/mcL (4.3-11.1)
[2020-07-02 22:07] LABS: INR 1.2; Prothrombin Time 14.1 Seconds (9.4-12.1)
[2020-07-02 22:10] LABS: Activated Partial Thrombo Time 23.8 Seconds (26.0-36.0)
[2020-07-02 22:34] LABS: Albumin 2.4 g/dL (3.5-5.7); Albumin/Globulin Ratio 0.8 (1.1-2.2); Bilirubin,Indirect 0.4 mg/dL (0.0-1.0); Bilirubin,Total 0.4 mg/dL (0.3-1.0); Calcium 7.6 mg/dL (8.6-10.3); Globulin 3.1 g/dL (2.4-3.5); Magnesium 2.2 mg/dL (1.6-2.6); Phosphorous 5.5 mg/dL (2.7-4.5); Potassium 4.6 mEq/L (3.5-5.1); Total Protein 5.5 g/dL (6.4-8.9); Troponin I 0.06 ng/mL (< 0.04)
[2020-07-02 23:06] LABS: Bilirubin,Urine Negative (Negative); Blood,Urine Moderate (Negative); Budding Yeast,Urine Many per hpf (None Seen); Clarity,Urine Ex.Turbid (Clear); Color,Urine Yellow (Yellow); Glucose,Urine (UA) 100 mg/dL (Normal); Ketones,Urine 10 mg/dL (Negative); Leukocyte Esterase,Urine Large (Negative); Nitrite,Urine Negative (Negative); PH,Urine 6.5 pH Units (5.0-8.0); Protein,Urine >=300 mg/dL (Neg-Trace); RBC,Urine TNTC per hpf (0-3); Specific Gravity,Urine 1.013 (1.010-1.025); Urobilinogen,Urine Normal (Normal); WBC,Urine TNTC per hpf (0-3)
[2020-07-02] MEDS ORDERED: cefTRIAXone 1,000 MG in 0.9 % Sodium Chloride Mini Bag 100 ML IVPB ONE (23:52)
[2020-07-03] MEDS ORDERED: Piperacillin/Tazobactam 3.375 GM in 0.9 % Sodium Chloride Mini Bag 100 ML IVPB ONE (00:08)
[2020-07-03] MEDS ORDERED: Naloxone 0.4 MG/ML INJ IVP PRN (03:10)
[2020-07-03] MEDS ORDERED: Ondansetron 4 MG/2 ML VIAL IVP PRN (03:16)
[2020-07-03 06:57] LABS: Basophils # 0.1 K/mcL (0.0-0.2); Basophils % 0.4 %; Eosinophils # 0.1 K/mcL (0.0-0.6); Eosinophils % 0.5 %; Hematocrit 35.2 % (37.5-50.1); Hemoglobin 10.9 g/dL (12.9-16.9); Immature Granulocytes % 0.8 % (0-4); Lymphocytes # 0.8 K/mcL (0.6-4.6); Lymphocytes % 6.1 %; Mean Corpuscular Hemoglobin 31.5 pg (28.0-33.3); Mean Corpuscular Volume 101.7 fL (83.0-100.0); Monocytes % 7.3 %; Neutrophils # 11.3 K/mcL (1.6-8.9); Platelet Count 199 K/mcL (140-400); Red Blood Count 3.46 M/mcL (4.19-5.50); Red Cell Distribution Width 13.9 % (11.5-14.5); Segmented Neutrophils % 84.9 %; White Blood Count 13.3 K/mcL (4.3-11.1)
[2020-07-03 07:00] LABS: INR 1.2; Prothrombin Time 13.5 Seconds (9.4-12.1)
[2020-07-03 07:19] LABS: Calcium 7.9 mg/dL (8.6-10.3); Chol/HDL Ratio 3.4 (0-4.9); Magnesium 2.3 mg/dL (1.6-2.6)
[2020-07-03] MEDS ORDERED: 0.9 % Sodium Chloride 250 ML IVC PRN (07:34)
[2020-07-03] MEDS ORDERED: *HR* Heparin 10,000 UNIT/10 ML VIAL IV PRN (07:34)
[2020-07-03] MEDS ORDERED: 0.9 % Sodium Chloride 1,000 ML PRIME SCH (07:45)
[2020-07-03] MEDS ORDERED: Piperacillin/Tazobactam 3.375 GM in 0.9 % Sodium Chloride Mini Bag 100 ML IVPB SCH ×2 (08:00→12:00)
[2020-07-03] MEDS ORDERED: NIFEdipine XL (24 HR) 60 MG TAB.ER.24 PO SCH (09:00)
[2020-07-03] MEDS ORDERED: Metoprolol XL (24 HR) Succ 50 MG TAB.ER.24H PO SCH (09:00)
[2020-07-03] MEDS ORDERED: Furosemide 20 MG TABLET PO SCH (09:00)
[2020-07-03] MEDS ORDERED: Apixaban 5 MG TABLET PO SCH (09:00)
[2020-07-03] MEDS ORDERED: Finasteride 5 MG TABLET PO SCH (09:00)
[2020-07-03] MEDS ORDERED: Isosorbide MONOnitrate (24 HR) 60 MG TAB.ER.24H PO SCH (09:00)
[2020-07-03] MEDS ORDERED: amLODIPine 5 MG TABLET PO SCH (09:00)
[2020-07-03] MEDS ORDERED: hydrALAZINE 25 MG TABLET PO SCH (09:00)
[2020-07-03] MEDS ORDERED: Aspirin Enteric Coated 81 MG Tablet PO SCH (09:00)
[2020-07-03] MEDS ORDERED: Budesonide/Formoterol 80/4.5 1 PUFF INH IH SCH (10:00)
[2020-07-03 16:47] VITALS: BP 108/56
[2020-07-03 20:12] LABS: Acinetobacter baumannii by PCR Not Detected (Not Detect); Candida albicans by PCR Not Detected (Not Detect); Candida glabrata by PCR Not Detected (Not Detect); Candida krusei by PCR Not Detected (Not Detect); Candida parapsilosis by PCR Not Detected (Not Detect); Candida tropicalis by PCR Not Detected (Not Detect); Enterobacter cloacae Cmplx PCR Not Detected (Not Detect); Enterobacteriaceae by PCR Not Detected (Not Detect); Enterococcus by PCR Not Detected (Not Detect); Escherichia coli by PCR Not Detected (Not Detect); Klebsiella oxytoca by PCR Not Detected (Not Detect); Klebsiella pneumoniae by PCR Not Detected (Not Detect); Proteus by PCR Not Detected (Not Detect); Pseudomonas aeruginosa by PCR Not Detected (Not Detect); Serratia marcescens by PCR Not Detected (Not Detect); Staphylococcus aureus by PCR Not Detected (Not Detect); Staphylococcus by PCR DETECTED (Not Detect); Streptococcus agalactiae(B)PCR Not Detected (Not Detect); Streptococcus by PCR Not Detected (Not Detect); Streptococcus pneumoniae PCR Not Detected (Not Detect); Streptococcus pyogenes (A) PCR Not Detected (Not Detect); blaKPC Carbapenem-Resist Gene Not Detected (Not Detect); mecA Methicillin-Resist Gene DETECTED (Not Detect); vanA/B Vancomycin-Resist Genes Not Detected (Not Detect)
[2020-07-03] MEDS ORDERED: Mirtazapine 15 MG TABLET PO SCH (21:00)
== END 2020-07-03 18:27 ==
LOC: EMEROOARM 21:22 → 2NENU 21:22 → SUATTDRO 07-03 02:59 → 2NENU 07-03 03:48
PROVIDERS: ADMIT Family Medicine; ATTEND Internal Medicine

== ENCOUNTER 2020-07-24 09:07 | Inpatient (IN) ==
[2020-07-24 10:20] LABS: Basophils % 0.3 %; Eosinophils % 0.1 %; Hematocrit 32.1 % (37.5-50.1); Hemoglobin 9.8 g/dL (12.9-16.9); Immature Granulocytes % 0.5 % (0-4); Lymphocytes # 0.5 K/mcL (0.6-4.6); Mean Corpuscular HGB Conc 30.5 g/dL (31.6-35.5); Mean Corpuscular Hemoglobin 29.6 pg (28.0-33.3); Mean Platelet Volume 9.4 fL (9.4-12.4); Monocytes % 7.5 %; Neutrophils # 11.8 K/mcL (1.6-8.9); Platelet Count 221 K/mcL (140-400); Red Blood Count 3.31 M/mcL (4.19-5.50); Red Cell Distribution Width 15.5 % (11.5-14.5); Segmented Neutrophils % 87.6 %; White Blood Count 13.5 K/mcL (4.3-11.1)
[2020-07-24 10:30] LABS: INR 1.7; Prothrombin Time 19.9 Seconds (9.4-12.1)
[2020-07-24 10:32] LABS: Activated Partial Thrombo Time 35.3 Seconds (26.0-36.0)
[2020-07-24 10:42] LABS: Albumin 2.9 g/dL (3.5-5.7); Albumin/Globulin Ratio 0.8 (1.1-2.2); Bilirubin,Direct 0.2 mg/dL (0.0-0.2); Bilirubin,Indirect 0.4 mg/dL (0.0-1.0); Bilirubin,Total 0.6 mg/dL (0.3-1.0); Calcium 8.5 mg/dL (8.6-10.3); Globulin 3.5 g/dL (2.4-3.5); Magnesium 1.9 mg/dL (1.6-2.6); Phosphorous 2.5 mg/dL (2.7-4.5); Potassium 5.9 mEq/L (3.5-5.1); Total Protein 6.4 g/dL (6.4-8.9); Troponin I 0.06 ng/mL (< 0.04)
[2020-07-24] MEDS ORDERED: Albuterol 2.5 MG/3 ML NEBULIZER IH ONE (10:47)
[2020-07-24] MEDS ORDERED: Calcium Gluconate 1gm/50mL 1 GM/50 ML BAG IVPB PRN (10:47)
[2020-07-24] MEDS ORDERED: Insulin Human Regular 10 UNIT in 0.9 % Sodium Chloride 10 ML IV ONE (10:50)
[2020-07-24] MEDS ORDERED: *HR* Dextrose 50 % in Water (Vial) 50 ML VIAL IVP ONE (10:50)
[2020-07-24] MEDS ORDERED: Piperacillin/Tazobactam 3.375 GM in 0.9 % Sodium Chloride Mini Bag 100 ML IVPB ONE (11:59)
[2020-07-24] MEDS ORDERED: Naloxone 0.4 MG/ML INJ IVP PRN (15:11)
[2020-07-24] MEDS ORDERED: *HR* LORazepam Oral Conc 2 MG/ML SL PRN (15:13)
[2020-07-24] MEDS ORDERED: Morphine Sulfate Oral CONC 10 MG/0.5 ML ORAL.SYG SL PRN (15:13)
[2020-07-24] MEDS ORDERED: Atropine Sulfate 1% 40 DROP/2 ML BOTTLE SL PRN (15:13)
[2020-07-24] MEDS ORDERED: Dextrose Gel 15 GM/37.5 ML TUBE PO PRN ×2 (17:53)
[2020-07-24] MEDS: Fluconazole 100 MG TABLET PO SCH (17:54)
[2020-07-24] MEDS: Budesonide/Formoterol 80/4.5 1 PUFF INH IH SCH (19:42)
[2020-07-24 20:33] LABS: Estimated Average Glucose 163 mg/dl
[2020-07-24] MEDS: Apixaban 5 MG TABLET PO SCH (21:10)
[2020-07-24] MEDS: hydrALAZINE 25 MG TABLET PO SCH (21:10)
[2020-07-24] MEDS: Metoprolol 100 MG TABLET PO SCH (21:10)
[2020-07-24] MEDS: Insulin LISPRO 300 UNITS/3 ML VIAL SQ SCH (21:41)
[2020-07-24] MEDS: Insulin DETEMIR 100 UNIT/ML X5UNITS SQ SCH (21:41)
[2020-07-25] MEDS ORDERED: Piperacillin/Tazobactam 3.375 GM in 0.9 % Sodium Chloride Mini Bag 100 ML IVPB SCH
[2020-07-25 01:55] LABS: Basophils # 0.1 K/mcL (0.0-0.2); Basophils % 0.3 %; Eosinophils % 0.2 %; Hematocrit 32.7 % (37.5-50.1); Hemoglobin 9.9 g/dL (12.9-16.9); Immature Granulocytes % 0.4 % (0-4); Lymphocytes # 0.7 K/mcL (0.6-4.6); Lymphocytes % 4.1 %; Mean Corpuscular HGB Conc 30.3 g/dL (31.6-35.5); Mean Corpuscular Hemoglobin 30.7 pg (28.0-33.3); Mean Corpuscular Volume 101.2 fL (83.0-100.0); Mean Platelet Volume 9.4 fL (9.4-12.4); Monocytes # 1.1 K/mcL (0.0-1.3); Monocytes % 6.6 %; Neutrophils # 14.9 K/mcL (1.6-8.9); Platelet Count 207 K/mcL (140-400); Red Blood Count 3.23 M/mcL (4.19-5.50); Red Cell Distribution Width 15.4 % (11.5-14.5); Segmented Neutrophils % 88.4 %; White Blood Count 16.8 K/mcL (4.3-11.1)
[2020-07-25] MEDS: *HR* Metoprolol 5 MG/5 ML VIAL IVP PRN ×3 (02:33→02:47)
[2020-07-25 02:47] LABS: Calcium 8.5 mg/dL (8.6-10.3); Phosphorous 3.1 mg/dL (2.7-4.5); Potassium 5.8 mEq/L (3.5-5.1)
[2020-07-25] MEDS: *HR* Dextrose 50 % in Water (Vial) 50 ML VIAL IVP PRN ×2 (03:00→04:09)
[2020-07-25] MEDS: D5% in Water 1,000 ML IVC PRN ×2 (04:12→13:56)
[2020-07-25 06:00] LABS: Acinetobacter baumannii by PCR Not Detected (Not Detect); Candida albicans by PCR Not Detected (Not Detect); Candida glabrata by PCR Not Detected (Not Detect); Candida krusei by PCR Not Detected (Not Detect); Candida parapsilosis by PCR Not Detected (Not Detect); Candida tropicalis by PCR Not Detected (Not Detect); Enterobacter cloacae Cmplx PCR Not Detected (Not Detect); Enterococcus by PCR Not Detected (Not Detect); Escherichia coli by PCR Not Detected (Not Detect); Klebsiella oxytoca by PCR Not Detected (Not Detect); Klebsiella pneumoniae by PCR Not Detected (Not Detect); Proteus by PCR DETECTED (Not Detect); Pseudomonas aeruginosa by PCR Not Detected (Not Detect); Serratia marcescens by PCR Not Detected (Not Detect); Staphylococcus aureus by PCR Not Detected (Not Detect); Staphylococcus by PCR Not Detected (Not Detect); Streptococcus agalactiae(B)PCR Not Detected (Not Detect); Streptococcus by PCR Not Detected (Not Detect); Streptococcus pneumoniae PCR Not Detected (Not Detect); Streptococcus pyogenes (A) PCR Not Detected (Not Detect); blaKPC Carbapenem-Resist Gene DETECTED (Not Detect)
[2020-07-25 06:01] LABS: Acinetobacter baumannii by PCR Not Detected (Not Detect); Enterobacter cloacae Cmplx PCR Not Detected (Not Detect); Enterococcus by PCR DETECTED (Not Detect); Escherichia coli by PCR Not Detected (Not Detect); Klebsiella oxytoca by PCR Not Detected (Not Detect); Klebsiella pneumoniae by PCR Not Detected (Not Detect); Staphylococcus aureus by PCR Not Detected (Not Detect); Staphylococcus by PCR Not Detected (Not Detect); Streptococcus agalactiae(B)PCR Not Detected (Not Detect); Streptococcus by PCR Not Detected (Not Detect); Streptococcus pneumoniae PCR Not Detected (Not Detect); Streptococcus pyogenes (A) PCR Not Detected (Not Detect); blaKPC Carbapenem-Resist Gene DETECTED (Not Detect); vanA/B Vancomycin-Resist Genes DETECTED (Not Detect)
[2020-07-25 06:02] LABS: Candida albicans by PCR Not Detected (Not Detect); Candida glabrata by PCR Not Detected (Not Detect); Candida krusei by PCR Not Detected (Not Detect); Candida parapsilosis by PCR Not Detected (Not Detect); Candida tropicalis by PCR Not Detected (Not Detect); Proteus by PCR DETECTED (Not Detect); Pseudomonas aeruginosa by PCR Not Detected (Not Detect); Serratia marcescens by PCR Not Detected (Not Detect)
[2020-07-25] MEDS: Insulin LISPRO 300 UNITS/3 ML VIAL SQ SCH ×4 (06:43→22:29)
[2020-07-25] MEDS ORDERED: *HR* Heparin 10,000 UNIT/10 ML VIAL IV PRN (07:24)
[2020-07-25] MEDS ORDERED: 0.9 % Sodium Chloride 250 ML IVC PRN (07:24)
[2020-07-25] MEDS ORDERED: 0.9 % Sodium Chloride 1,000 ML PRIME SCH (07:30)
[2020-07-25] MEDS: Budesonide/Formoterol 80/4.5 1 PUFF INH IH SCH ×2 (07:38→20:24)
[2020-07-25] MEDS: Aspirin Enteric Coated 81 MG Tablet PO SCH (07:51)
[2020-07-25] MEDS: hydrALAZINE 25 MG TABLET PO SCH (07:51)
[2020-07-25] MEDS: Apixaban 5 MG TABLET PO SCH ×2 (07:52→20:43)
[2020-07-25] MEDS: NIFEdipine XL (24 HR) 60 MG TAB.ER.24 PO SCH (07:52)
[2020-07-25] MEDS: Finasteride 5 MG TABLET PO SCH (07:52)
[2020-07-25] MEDS: Metoprolol 100 MG TABLET PO SCH ×2 (07:52→20:43)
[2020-07-25] MEDS: Insulin DETEMIR 100 UNIT/ML X5UNITS SQ SCH (08:14)
[2020-07-25] MEDS ORDERED: AVIBACTAM IVPB ONE (12:00)
[2020-07-25] MEDS ORDERED: CEFTAZIDIME IVPB ONE (12:00)
[2020-07-25] MEDS ORDERED: SODIUM CHLORIDE 0.9% IVPB ONE (12:00)
[2020-07-25] MEDS ORDERED: Colistin (Colistimethate) 300 MG in 0.9 % Sodium Chloride 50 ML IVPB ONE (13:00)
[2020-07-25] MEDS ORDERED: Ipratropium 1 PUFF INHALER IH PRN (15:23)
[2020-07-25] MEDS ORDERED: Vancomycin 250 MG in 0.9 % Sodium Chloride Mini Bag 100 ML IVPB ONE (16:00)
[2020-07-25] MEDS: DAPTOmycin 500 MG in 0.9 % Sodium Chloride 100 ML IVPB SCH (20:43)
[2020-07-26 04:28] LABS: Hematocrit 27.2 % (37.5-50.1); Hemoglobin 8.5 g/dL (12.9-16.9); Mean Corpuscular HGB Conc 31.3 g/dL (31.6-35.5); Mean Corpuscular Hemoglobin 30.2 pg (28.0-33.3); Mean Corpuscular Volume 96.8 fL (83.0-100.0); Mean Platelet Volume 9.8 fL (9.4-12.4); Platelet Count 163 K/mcL (140-400); Red Blood Count 2.81 M/mcL (4.19-5.50); Red Cell Distribution Width 15.1 % (11.5-14.5); White Blood Count 15.8 K/mcL (4.3-11.1)
[2020-07-26 04:39] LABS: INR 1.9; Prothrombin Time 21.5 Seconds (9.4-12.1)
[2020-07-26 04:40] LABS: Activated Partial Thrombo Time 33.7 Seconds (26.0-36.0)
[2020-07-26 05:12] LABS: Alanine Aminotransferase 66 Units/L (7-52); Albumin 2.4 g/dL (3.5-5.7); Albumin/Globulin Ratio 0.8 (1.1-2.2); Alkaline Phosphatase 359 Units/L (34-104); Aspartate Amino Transferase 31 Units/L (13-39); BUN/Creatinine Ratio 8 (6-26); Bilirubin,Total 0.7 mg/dL (0.3-1.0); Blood Urea Nitrogen 24 mg/dL (8-23); C-Reactive Protein 199 mg/L (Less than 10); Calcium 7.4 mg/dL (8.6-10.3); Carbon Dioxide 23 mEq/L (23-29); Chloride 92 mEq/L (98-107); Ferritin > 1500 ng/mL (20-250); Folate 8.2 ng/mL (3.0-16.0); Glucose 245 mg/dL (70-105); Iron 28 mcg/dL (65-175); Lactate Dehydrogenase 227 Units/L (140-271); Magnesium 1.6 mg/dL (1.6-2.6); Osmolality,Calculated 276 (280-300); Phosphorous 2.7 mg/dL (2.7-4.5); Sodium 127 mEq/L (136-145); Total Protein 5.4 g/dL (6.4-8.9); Transferrin < 75 mg/dL (203-362); eGFR For African Americans 26 (> 60); eGFR For Non-African Americans 21 (> 60)
[2020-07-26] MEDS ORDERED: 0.9 % Sodium Chloride 250 ML IVC PRN (07:35)
[2020-07-26] MEDS ORDERED: *HR* Heparin 10,000 UNIT/10 ML VIAL IV PRN (07:35)
[2020-07-26] MEDS ORDERED: Calcium Gluconate 1gm/50mL 1 GM/50 ML BAG IVPB ONE (07:36)
[2020-07-26] MEDS ORDERED: Iron Sucrose Complex 400 MG in 0.9 % Sodium Chloride 250 ML IVPB ONE (07:39)
[2020-07-26] MEDS ORDERED: Magnesium Sulfate 1 GM/102 ML PIGGYBACK IVPB ONE (07:40)
[2020-07-26] MEDS: Budesonide/Formoterol 80/4.5 1 PUFF INH IH SCH ×2 (08:09→19:49)
[2020-07-26] MEDS: Insulin LISPRO 300 UNITS/3 ML VIAL SQ SCH ×4 (08:30→21:55)
[2020-07-26] MEDS ORDERED: 0.9 % Sodium Chloride 250 ML ONE (11:18)
[2020-07-26] MEDS: Apixaban 5 MG TABLET PO SCH (11:27)
[2020-07-26] MEDS: Finasteride 5 MG TABLET PO SCH (11:27)
[2020-07-26] MEDS: Aspirin Enteric Coated 81 MG Tablet PO SCH (11:27)
[2020-07-26] MEDS: Renal Vitamin 1 CAP CAPSULE PO SCH (11:27)
[2020-07-26] MEDS: Metoprolol 100 MG TABLET PO SCH (12:01)
[2020-07-26] MEDS: NIFEdipine XL (24 HR) 60 MG TAB.ER.24 PO SCH (12:02)
[2020-07-26] MEDS ORDERED: 0.9 % Sodium Chloride 250 ML IVC ONE (12:04)
[2020-07-26 12:11] LABS: Hematocrit 28.4 % (37.5-50.1)
[2020-07-26] MEDS: Fluconazole 100 MG TABLET PO SCH (15:37)
[2020-07-26] MEDS ORDERED: Acetaminophen 325 MG TABLET PO PRN (16:54)
[2020-07-26] MEDS ORDERED: Apixaban 5 MG TABLET PO SCH (21:00)
[2020-07-26] MEDS: CEFTAZIDIME IVPB SCH ×2 (21:28→22:38)
[2020-07-26] MEDS: AVIBACTAM IVPB SCH ×2 (21:28→22:38)
[2020-07-26] MEDS: SODIUM CHLORIDE 0.9% IVPB SCH ×2 (21:28→22:38)
[2020-07-26] MEDS: Colistin (Colistimethate) 130 MG in 0.9 % Sodium Chloride 50 ML IVPB SCH (21:33)
[2020-07-27 05:52] LABS: Hematocrit 27.6 % (37.5-50.1); Hemoglobin 8.5 g/dL (12.9-16.9); Mean Corpuscular HGB Conc 30.8 g/dL (31.6-35.5); Mean Corpuscular Hemoglobin 29.6 pg (28.0-33.3); Mean Corpuscular Volume 96.2 fL (83.0-100.0); Mean Platelet Volume 9.5 fL (9.4-12.4); Platelet Count 180 K/mcL (140-400); Red Blood Count 2.87 M/mcL (4.19-5.50); Red Cell Distribution Width 15.3 % (11.5-14.5); White Blood Count 11.9 K/mcL (4.3-11.1)
[2020-07-27 06:06] LABS: Calcium 7.7 mg/dL (8.6-10.3); Potassium 3.9 mEq/L (3.5-5.1)
[2020-07-27 06:07] LABS: Magnesium 2.1 mg/dL (1.6-2.6); Phosphorous 3.3 mg/dL (2.7-4.5)
[2020-07-27] MEDS: Budesonide/Formoterol 80/4.5 1 PUFF INH IH SCH ×2 (08:09→20:52)
[2020-07-27] MEDS: Renal Vitamin 1 CAP CAPSULE PO SCH (08:22)
[2020-07-27] MEDS: NIFEdipine XL (24 HR) 60 MG TAB.ER.24 PO SCH (08:22)
[2020-07-27] MEDS: Aspirin Enteric Coated 81 MG Tablet PO SCH (08:22)
[2020-07-27] MEDS: Finasteride 5 MG TABLET PO SCH (08:23)
[2020-07-27] MEDS: Insulin LISPRO 300 UNITS/3 ML VIAL SQ SCH ×4 (08:23→19:31)
[2020-07-27 15:15] LABS: Hematocrit 22.7 % (37.5-50.1); Hemoglobin 7.5 g/dL (12.9-16.9)
[2020-07-27] MEDS: DAPTOmycin 500 MG in 0.9 % Sodium Chloride 100 ML IVPB SCH (17:29)
[2020-07-27] MEDS: AVIBACTAM IVPB SCH (19:35)
[2020-07-27] MEDS: SODIUM CHLORIDE 0.9% IVPB SCH (19:35)
[2020-07-27] MEDS: CEFTAZIDIME IVPB SCH (19:35)
[2020-07-27] MEDS: Colistin (Colistimethate) 130 MG in 0.9 % Sodium Chloride 50 ML IVPB SCH (23:47)
[2020-07-28] MEDS: Budesonide/Formoterol 80/4.5 1 PUFF INH IH SCH ×2 (08:05→21:49)
[2020-07-28] MEDS: Insulin LISPRO 300 UNITS/3 ML VIAL SQ SCH ×4 (08:41→22:28)
[2020-07-28] MEDS: Pantoprazole 40 MG VIAL IVP SCH (08:41)
[2020-07-28] MEDS: Aspirin Enteric Coated 81 MG Tablet PO SCH (08:41)
[2020-07-28] MEDS: Renal Vitamin 1 CAP CAPSULE PO SCH (08:41)
[2020-07-28] MEDS ORDERED: NIFEdipine XL (24 HR) 30 MG TAB.ER.24 PO SCH (09:00)
[2020-07-28] MEDS ORDERED: 0.9 % Sodium Chloride 250 ML IVC PRN (09:02)
[2020-07-28] MEDS ORDERED: *HR* Heparin 10,000 UNIT/10 ML VIAL IV PRN (09:13)
[2020-07-28] MEDS ORDERED: Albumin 25% 25gram/100mL 25 GM/100 ML IV.SOLN IVPB PRN (09:31)
[2020-07-28 10:47] LABS: Hematocrit 24.6 % (37.5-50.1); Hemoglobin 7.4 g/dL (12.9-16.9); Mean Corpuscular HGB Conc 30.1 g/dL (31.6-35.5); Mean Corpuscular Hemoglobin 30.3 pg (28.0-33.3); Mean Corpuscular Volume 100.8 fL (83.0-100.0); Mean Platelet Volume 9.2 fL (9.4-12.4); Platelet Count 142 K/mcL (140-400); Red Blood Count 2.44 M/mcL (4.19-5.50); Red Cell Distribution Width 15.6 % (11.5-14.5); White Blood Count 10.9 K/mcL (4.3-11.1)
[2020-07-28 10:50] LABS: INR 1.3; Prothrombin Time 14.6 Seconds (9.4-12.1)
[2020-07-28 10:52] LABS: Activated Partial Thrombo Time 31.8 Seconds (26.0-36.0)
[2020-07-28 10:57] LABS: Albumin 2.3 g/dL (3.5-5.7); Albumin/Globulin Ratio 0.8 (1.1-2.2); Bilirubin,Total 0.4 mg/dL (0.3-1.0); Calcium 7.6 mg/dL (8.6-10.3); Calcium 7.7 mg/dL (8.6-10.3); Magnesium 2.1 mg/dL (1.6-2.6); Phosphorous 3.6 mg/dL (2.7-4.5); Potassium 3.7 mEq/L (3.5-5.1); Potassium 3.8 mEq/L (3.5-5.1); Total Protein 5.3 g/dL (6.4-8.9)
[2020-07-28 11:12] LABS: Thyroid Stimulating Hormone 2.426 mcIU/mL (0.340-5.600)
[2020-07-28 12:45] LABS: Troponin I 0.05 ng/mL (< 0.04)
[2020-07-28] MEDS ORDERED: 0.9 % Sodium Chloride 250 ML ONE (14:06)
[2020-07-28] MEDS: Fluconazole 100 MG TABLET PO SCH (15:49)
[2020-07-28] MEDS: SODIUM CHLORIDE 0.9% IVPB SCH (20:42)
[2020-07-28] MEDS: AVIBACTAM IVPB SCH (20:42)
[2020-07-28] MEDS: CEFTAZIDIME IVPB SCH (20:42)
[2020-07-28] MEDS: Colistin (Colistimethate) 130 MG in 0.9 % Sodium Chloride 50 ML IVPB SCH (20:43)
[2020-07-29 05:20] LABS: Basophils % 0.3 %; Eosinophils # 0.1 K/mcL (0.0-0.6); Hematocrit 27.2 % (37.5-50.1); Hemoglobin 8.7 g/dL (12.9-16.9); Immature Granulocytes % 0.5 % (0-4); Lymphocytes # 0.8 K/mcL (0.6-4.6); Lymphocytes % 6.9 %; Mean Corpuscular Hemoglobin 30.6 pg (28.0-33.3); Mean Corpuscular Volume 95.8 fL (83.0-100.0); Mean Platelet Volume 9.2 fL (9.4-12.4); Monocytes # 1.3 K/mcL (0.0-1.3); Monocytes % 11.6 %; Neutrophils # 8.7 K/mcL (1.6-8.9); Platelet Count 153 K/mcL (140-400); Red Blood Count 2.84 M/mcL (4.19-5.50); Red Cell Distribution Width 15.4 % (11.5-14.5); Segmented Neutrophils % 79.7 %
[2020-07-29 05:34] LABS: Magnesium 2.2 mg/dL (1.6-2.6); Phosphorous 3.8 mg/dL (2.7-4.5)
[2020-07-29 05:35] LABS: Calcium 7.7 mg/dL (8.6-10.3); Potassium 4.4 mEq/L (3.5-5.1)
[2020-07-29] MEDS: Budesonide/Formoterol 80/4.5 1 PUFF INH IH SCH ×2 (07:49→21:17)
[2020-07-29] MEDS: Renal Vitamin 1 CAP CAPSULE PO SCH (08:05)
[2020-07-29] MEDS: Aspirin Enteric Coated 81 MG Tablet PO SCH (08:05)
[2020-07-29] MEDS: Pantoprazole 40 MG VIAL IVP SCH (08:05)
[2020-07-29] MEDS: Insulin LISPRO 300 UNITS/3 ML VIAL SQ SCH ×4 (08:06→22:26)
[2020-07-29] MEDS: DAPTOmycin 500 MG in 0.9 % Sodium Chloride 100 ML IVPB SCH (17:47)
[2020-07-29] MEDS: Colistin (Colistimethate) 130 MG in 0.9 % Sodium Chloride 50 ML IVPB SCH (21:13)
[2020-07-29] MEDS: SODIUM CHLORIDE 0.9% IVPB SCH (21:14)
[2020-07-29] MEDS: AVIBACTAM IVPB SCH (21:14)
[2020-07-29] MEDS: CEFTAZIDIME IVPB SCH (21:14)
[2020-07-30 05:07] LABS: Basophils % 0.2 %; Eosinophils # 0.1 K/mcL (0.0-0.6); Eosinophils % 1.1 %; Hematocrit 27.8 % (37.5-50.1); Hemoglobin 8.5 g/dL (12.9-16.9); Immature Granulocytes % 0.5 % (0-4); Lymphocytes # 0.5 K/mcL (0.6-4.6); Lymphocytes % 4.6 %; Mean Corpuscular HGB Conc 30.6 g/dL (31.6-35.5); Mean Corpuscular Hemoglobin 29.4 pg (28.0-33.3); Mean Corpuscular Volume 96.2 fL (83.0-100.0); Mean Platelet Volume 9.2 fL (9.4-12.4); Monocytes # 0.8 K/mcL (0.0-1.3); Monocytes % 8.6 %; Neutrophils # 8.3 K/mcL (1.6-8.9); Platelet Count 159 K/mcL (140-400); Red Blood Count 2.89 M/mcL (4.19-5.50); Red Cell Distribution Width 15.7 % (11.5-14.5); White Blood Count 9.8 K/mcL (4.3-11.1)
[2020-07-30 05:27] LABS: Magnesium 2.2 mg/dL (1.6-2.6); Phosphorous 4.2 mg/dL (2.7-4.5)
[2020-07-30 05:28] LABS: Calcium 7.8 mg/dL (8.6-10.3)
[2020-07-30] MEDS ORDERED: 0.9 % Sodium Chloride 250 ML IVC PRN (07:19)
[2020-07-30] MEDS ORDERED: *HR* Heparin 10,000 UNIT/10 ML VIAL IV PRN ×2 (07:19→07:36)
[2020-07-30] MEDS ORDERED: 0.9 % Sodium Chloride 1,000 ML PRIME SCH (07:30)
[2020-07-30] MEDS: Pantoprazole 40 MG VIAL IVP SCH (08:48)
[2020-07-30] MEDS: Aspirin Enteric Coated 81 MG Tablet PO SCH (08:48)
[2020-07-30] MEDS: Renal Vitamin 1 CAP CAPSULE PO SCH (08:48)
[2020-07-30] MEDS: Insulin LISPRO 300 UNITS/3 ML VIAL SQ SCH ×4 (08:49→21:15)
[2020-07-30] MEDS: Budesonide/Formoterol 80/4.5 1 PUFF INH IH SCH ×2 (10:55→19:30)
[2020-07-30] MEDS: Fluconazole 100 MG TABLET PO SCH (14:10)
[2020-07-30] MEDS: SODIUM CHLORIDE 0.9% IVPB SCH (21:15)
[2020-07-30] MEDS: AVIBACTAM IVPB SCH (21:15)
[2020-07-30] MEDS: CEFTAZIDIME IVPB SCH (21:15)
[2020-07-30] MEDS ORDERED: Acetaminophen 325 MG TABLET PO PRN (21:54)
[2020-07-30] MEDS: Colistin (Colistimethate) 130 MG in 0.9 % Sodium Chloride 50 ML IVPB SCH (23:30)
[2020-07-31 04:52] LABS: Basophils % 0.3 %; Eosinophils % 0.4 %; Hematocrit 27.3 % (37.5-50.1); Hemoglobin 8.6 g/dL (12.9-16.9); Immature Granulocytes % 0.6 % (0-4); Lymphocytes # 0.8 K/mcL (0.6-4.6); Lymphocytes % 9.9 %; Mean Corpuscular HGB Conc 31.5 g/dL (31.6-35.5); Mean Corpuscular Hemoglobin 30.2 pg (28.0-33.3); Mean Corpuscular Volume 95.8 fL (83.0-100.0); Mean Platelet Volume 9.2 fL (9.4-12.4); Monocytes # 0.8 K/mcL (0.0-1.3); Monocytes % 9.8 %; Neutrophils # 6.2 K/mcL (1.6-8.9); Platelet Count 164 K/mcL (140-400); Red Blood Count 2.85 M/mcL (4.19-5.50); Red Cell Distribution Width 15.8 % (11.5-14.5); White Blood Count 7.8 K/mcL (4.3-11.1)
[2020-07-31 05:14] LABS: Calcium 7.9 mg/dL (8.6-10.3); Magnesium 2.1 mg/dL (1.6-2.6); Potassium 3.5 mEq/L (3.5-5.1)
[2020-07-31] MEDS: Budesonide/Formoterol 80/4.5 1 PUFF INH IH SCH ×2 (08:01→20:16)
[2020-07-31] MEDS: Renal Vitamin 1 CAP CAPSULE PO SCH (09:26)
[2020-07-31] MEDS: Insulin LISPRO 300 UNITS/3 ML VIAL SQ SCH ×4 (09:27→20:51)
[2020-07-31] MEDS: Pantoprazole 40 MG VIAL IVP SCH (09:27)
[2020-07-31] MEDS: Aspirin Enteric Coated 81 MG Tablet PO SCH (09:27)
[2020-07-31] MEDS: DAPTOmycin 500 MG in 0.9 % Sodium Chloride 100 ML IVPB SCH (16:57)
[2020-07-31] MEDS: Colistin (Colistimethate) 130 MG in 0.9 % Sodium Chloride 50 ML IVPB SCH (20:45)
[2020-07-31] MEDS: CEFTAZIDIME IVPB SCH (21:25)
[2020-07-31] MEDS: AVIBACTAM IVPB SCH (21:25)
[2020-07-31] MEDS: SODIUM CHLORIDE 0.9% IVPB SCH (21:25)
[2020-08-01 01:48] LABS: Hematocrit 25.9 % (37.5-50.1); Hemoglobin 8.3 g/dL (12.9-16.9); Mean Corpuscular Hemoglobin 30.2 pg (28.0-33.3); Mean Corpuscular Volume 94.2 fL (83.0-100.0); Mean Platelet Volume 9.4 fL (9.4-12.4); Platelet Count 193 K/mcL (140-400); Red Blood Count 2.75 M/mcL (4.19-5.50); Red Cell Distribution Width 15.9 % (11.5-14.5); White Blood Count 9.2 K/mcL (4.3-11.1)
[2020-08-01 02:06] LABS: Magnesium 2.1 mg/dL (1.6-2.6)
[2020-08-01 02:07] LABS: Calcium 8.4 mg/dL (8.6-10.3); Potassium 3.5 mEq/L (3.5-5.1)
[2020-08-01] MEDS: Insulin LISPRO 300 UNITS/3 ML VIAL SQ SCH ×4 (08:16→21:55)
[2020-08-01] MEDS: Aspirin Enteric Coated 81 MG Tablet PO SCH (08:17)
[2020-08-01] MEDS: Renal Vitamin 1 CAP CAPSULE PO SCH (08:17)
[2020-08-01] MEDS: Budesonide/Formoterol 80/4.5 1 PUFF INH IH SCH ×2 (08:46→20:14)
[2020-08-01] MEDS: Fluconazole 100 MG TABLET PO SCH (15:37)
[2020-08-01] MEDS: Colistin (Colistimethate) 130 MG in 0.9 % Sodium Chloride 50 ML IVPB SCH (21:19)
[2020-08-01] MEDS: SODIUM CHLORIDE 0.9% IVPB SCH (22:10)
[2020-08-01] MEDS: AVIBACTAM IVPB SCH (22:10)
[2020-08-01] MEDS: CEFTAZIDIME IVPB SCH (22:10)
[2020-08-02 03:13] LABS: Hematocrit 27.9 % (37.5-50.1); Hemoglobin 8.6 g/dL (12.9-16.9); Mean Corpuscular HGB Conc 30.8 g/dL (31.6-35.5); Mean Corpuscular Volume 97.2 fL (83.0-100.0); Mean Platelet Volume 9.3 fL (9.4-12.4); Platelet Count 163 K/mcL (140-400); Red Blood Count 2.87 M/mcL (4.19-5.50); Red Cell Distribution Width 16.5 % (11.5-14.5); White Blood Count 9.8 K/mcL (4.3-11.1)
[2020-08-02 03:30] LABS: Calcium 8.4 mg/dL (8.6-10.3); Potassium 4.1 mEq/L (3.5-5.1)
[2020-08-02] MEDS: Budesonide/Formoterol 80/4.5 1 PUFF INH IH SCH ×2 (07:56→19:56)
[2020-08-02] MEDS ORDERED: Insulin DETEMIR 100 UNIT/ML X5UNITS SQ SCH (09:15)
[2020-08-02] MEDS: Insulin LISPRO 300 UNITS/3 ML VIAL SQ SCH ×4 (09:15→21:29)
[2020-08-02] MEDS: Aspirin Enteric Coated 81 MG Tablet PO SCH (09:16)
[2020-08-02] MEDS: Renal Vitamin 1 CAP CAPSULE PO SCH (09:16)
[2020-08-02] MEDS ORDERED: *HR* LORazepam Oral Conc 2 MG/ML SL PRN (11:06)
[2020-08-02] MEDS: Insulin DETEMIR 100 UNIT/ML X5UNITS SQ SCH ×2 (12:12→21:51)
[2020-08-03] MEDS ORDERED: *HR* Dextrose 50 % in Water (Vial) 50 ML VIAL ONE (07:28)
[2020-08-03] MEDS: *HR* Dextrose 50 % in Water (Vial) 50 ML VIAL IVP PRN (07:34)
[2020-08-03] MEDS: Budesonide/Formoterol 80/4.5 1 PUFF INH IH SCH ×2 (07:53→22:44)
[2020-08-03] MEDS: Insulin LISPRO 300 UNITS/3 ML VIAL SQ SCH (09:16)
[2020-08-03] MEDS: Renal Vitamin 1 CAP CAPSULE PO SCH (09:17)
[2020-08-03] MEDS: Aspirin Enteric Coated 81 MG Tablet PO SCH (09:17)
[2020-08-03] MEDS: Insulin DETEMIR 100 UNIT/ML X5UNITS SQ SCH (09:17)
[2020-08-04 07:15] VITALS: BP 127/76
[2020-08-04] MEDS: Aspirin Enteric Coated 81 MG Tablet PO SCH (09:09)
[2020-08-04] MEDS: Renal Vitamin 1 CAP CAPSULE PO SCH (09:10)
== END 2020-08-04 14:24 | disposition expired | DRG 871 ==
LOC: 2NENU 09:07 → EMEROOARM 09:07 → SUATTDRO 15:12 → 2NENU 15:26 → SUATTDRO 07-26 13:38 → 2ANU 07-31 01:19
PROVIDERS: ADMIT Family Medicine; ATTEND General Practice